=== PATIENT | male | born 1970 | race Caucasian/White ===

== ENCOUNTER 2017-08-07 18:59 | Emergency (ER) | payer BC, SELFPAY ==
[2017-08-07 19:00] VITALS: BP 156/101; PULSE 102; RESP 18; TEMP 36.3; O2SAT 97; BMI 35.3
--- NOTE | 2017-08-07 19:20 | RAD_ITS ---
STUDY: X-RAY - LEFT SHOULDER REASON FOR EXAM: Male, 46 years old. Left shoulder pain. TECHNIQUE: 4 view(s) of the shoulder. COMPARISON: None. FINDINGS: Normal glenohumeral articulation. Normal acromioclavicular joint. Normal acromion. Normal humeral head and visualized proximal humerus. The soft tissue structures are unremarkable. There is no demonstrated fracture. Normal visualized pulmonary apex. RAD/Shoulder min 2 Views IMPRESSION: Normal x-ray examination of the shoulder. Electronically Signed: Master Nieves MD at 19:39 EDT , Service support ,
[2017-08-07] MEDS: Naproxen 500 MG Tablet PO (19:33)
--- NOTE | 2017-08-07 19:56 | ED.VISSUMM ---
- ER Visit Summary Date of Service: 08/07/17 Chief Complaint: Left shoulder pain History of Present Illness: The patient is a 46 M with a three-week history of left posterior shoulder pain. Pain is been worsened with movement or palpation. He denies any known injury. He did fall from a chair yesterday that seems to have worsened the pain. He is left-hand dominant. Pain does not radiate down his arm. He has no paresthesias or weakness. Physical Examination: Vital signs are significant for blood pressure 156/101, otherwise unremarkable. Head neck examination is unremarkable. No C-spine tenderness on exam. Heart is regular rate and rhythm. Lung sounds are clear. Abdomen is soft nontender. Left upper extremity examination reveals tenderness over the left scapula musculature. He has full range of motion at the shoulder. He has strong distal pulses and normal sensation. Test Results: Left shoulder x-rays are unremarkable. Emergency Department Course and Treatment: Patient is given Naprosyn and Flexeril here. He will be given a sling. He is referred to orthopedics for follow-up. Treatment Plan: [] Disposition: Discharge Impression: Left shoulder sprain This note was generated with [employer] dictation software. It may contain incorrect words, spelling, and punctuation that were not noted in review of the chart prior to signing ED Disposition - Plan for ED Patient: Chief Complaint: Upper Extremity Injury Referrals: Care Physician,No Primary [Primary Care Provider] -
--- NOTE | 2017-08-07 19:57 | ED.DEP ---
ED Disposition - Plan for ED Patient: Disposition: Home or Assisted Living Chief Complaint: Upper Extremity Injury Instructions: ED Shoulder Pain [facility] Prescriptions: Naproxen [Naprosyn] 500 mg PO BID PRN #20 tablet Cyclobenzaprine [Flexeril] 10 mg PO TID PRN #20 tablet PRN Reason: Muscle Spasm Referrals: Rosemary Miller DO [STAFF PHYSICIAN] - 1 Week
[2017-08-07 20:06] VITALS: BP 156/101; PULSE 102; RESP 18; O2SAT 97
== END 2017-08-07 20:06 | disposition home or self-care (01) ==
PROVIDERS: Emergency Provider Emergency Medicine
DX: S43.402A Unspecified sprain of left shoulder joint, initial encounter (principal); W07.XXXA Fall from chair, initial encounter; Y93.9 Activity, unspecified; Y92.9 Unspecified place or not applicable; Z72.0 Tobacco use
CPT/HCPCS: 73030; 99284

== ENCOUNTER 2017-10-02 16:40 | Emergency (ER) | payer SELFPAY ==
[2017-10-02 16:41] VITALS: BP 158/106; PULSE 85; RESP 18; TEMP 36.5; O2SAT 100; BMI 36.1
--- NOTE | 2017-10-02 16:55 | ED.VISSUMM ---
- ER Visit Summary Date of Service: 10/02/17 Chief Complaint: [] Left shoulder/trapezius pain History of Present Illness: The patient is a 47 M [] complaining of left shoulder/trapezius pain after several hours of pulling weeds and mowing the lawn. Patient denies direct injury. Denies lifting heavy weights. Reports not taking any [id number] NSAIDs prior to arrival. No other complaints. Physical Examination: [] Afebrile, vital signs stable. There is good range of motion of the left shoulder. There is mild discomfort with range of motion testing. There is tenderness palpation over the musculature of the trapezius on the deltoid. No significant swelling or warmth. Remainder of exam is unremarkable. Patient is neurovascularly intact distally to the left upper extremity. Test Results: [] None Emergency Department Course and Treatment: [] Patient given IM Toradol and IM Norflex for symptom relief. His adult fianc? is at the bedside will drive him home. Patient given short-term solution for Flexeril. He is instructed to apply moist heat to the affected area. Treatment Plan: [] Follow-up with PCP, outpatient prescription for Flexeril. Disposition: [] Discharge, stable. Impression: [] Left shoulder strain This note was generated with [employer] dictation software. It may contain incorrect words, spelling, and punctuation that were not noted in review of the chart prior to signing ED Disposition - Plan for ED Patient: Chief Complaint: Upper Extremity Injury Referrals: Care Physician,No Primary [Primary Care Provider] -
--- NOTE | 2017-10-02 16:57 | ED.DEP ---
ED Disposition - Plan for ED Patient: Disposition: Home or Assisted Living Chief Complaint: Upper Extremity Injury Instructions: ED Sprain Shoulder Prescriptions: Cyclobenzaprine [Flexeril] 10 mg PO TID #15 tab Referrals: Care Physician,No Primary [Primary Care Provider] -
[2017-10-02] MEDS: Ketorolac 30 MG/ML Syringe IM (16:59)
[2017-10-02] MEDS: Orphenadrine 60 MG/2 ML Ampul IM (16:59)
[2017-10-02 17:28] VITALS: RESP 18
== END 2017-10-02 17:28 | disposition home or self-care (01) ==
PROVIDERS: Emergency Provider Emergency Medicine
DX: S46.812A Strain of other muscles, fascia and tendons at shoulder and upper arm level, left arm, initial encounter (principal); X50.3XXA Overexertion from repetitive movements, initial encounter; Y93.H2 Activity, gardening and landscaping; Y92.007 Garden or yard of unspecified non-institutional (private) residence as the place of occurrence of the external cause; Y99.8 Other external cause status; I10 Essential (primary) hypertension; Z72.0 Tobacco use
CPT/HCPCS: 96372; 99282

== ENCOUNTER 2017-11-09 11:02 | Emergency (ER) | payer SELFPAY ==
[2017-11-09 11:04] VITALS: BP 157/98; PULSE 97; RESP 16; TEMP 36.6; O2SAT 96; BMI 34.8
--- NOTE | 2017-11-09 11:24 | ED.DCSUM_ITS ---
- ER Visit Summary Date of Service: 11/09/17 Chief Complaint: Left shoulder pain History of Present Illness: The patient is a 47 M with left shoulder pain. This has been ongoing issue for weeks. Worse of the last few days. No injury. Worse with movement and use. It does not radiate. No chest pain or back pain. No respiratory symptoms. No fevers or rashes. Patient has been seen multiple times. He has tried steroids, anti-inflammatories, narcotics, and muscle relaxers. Nothing seems to make his symptoms better. Physical Examination: Vital signs unremarkable. Patient appears uncomfortable but not toxic or in distress. Inspection is normal. He does have some tenderness over the left trapezius muscle. Neck is nontender. Shoulder shows good range of motion. He is neurovascular intact distally. Heart regular without murmurs. Lungs clear. Skin normal without rash. Test Results: None indicated, he had x-rays previously Emergency Department Course and Treatment: Patient treated with Toradol, Kenalog , and Norflex for myofascial pain. Nothing to suggest cardiac, respiratory, or vascular pathology. Nothing to suggest spinal or neurologic pathology. Patient was advised to continue anti-inflammatories and muscle relaxers at home. Follow-up with primary care. Treatment Plan: As above Disposition: Discharged Impression: 1. Left shoulder pain This note was generated with [employer] dictation software. It may contain incorrect words, spelling, and punctuation that were not noted in review of the chart prior to signing ED Disposition - Plan for ED Patient: Chief Complaint: Upper Extremity Injury Referrals: Care Physician,No Primary [Primary Care Provider] -
--- NOTE | 2017-11-09 11:24 | ED.DEP ---
ED Disposition - Plan for ED Patient: Chief Complaint: Upper Extremity Injury Instructions: Shoulder Problems Prescriptions: Cyclobenzaprine [Flexeril] 10 mg PO TID #10 tab Referrals: Elmer Kirk MD [STAFF PHYSICIAN] -
[2017-11-09] MEDS: Ketorolac 60 MG/2 ML Vial IM (11:27)
[2017-11-09] MEDS: Orphenadrine 60 MG/2 ML Ampul IM (11:28)
[2017-11-09] MEDS: Triamcinolone Acetonide 40 MG/ML Vial IM (11:28)
== END 2017-11-09 11:43 | disposition home or self-care (01) ==
LOC: ED 11:23
PROVIDERS: Emergency Provider Emergency Medicine
DX: M25.512 Pain in left shoulder (principal); Z72.0 Tobacco use
CPT/HCPCS: 96372; 99282

== ENCOUNTER 2018-05-05 18:37 | Emergency (ER) | payer MEDICAID, SELFPAY ==
[2018-05-05 18:38] VITALS: PULSE 100; RESP 18; TEMP 36.1; O2SAT 98; BMI 33.4
--- NOTE | 2018-05-05 18:53 | RAD_ITS ---
STUDY: X-RAY - LEFT HAND REASON FOR EXAM: Male, 47 years old. And laceration TECHNIQUE: 3 view(s) of the hand. COMPARISON: None. FINDINGS: Normal radiocarpal articulation. Normal distal radioulnar joint. Normal visualized carpal bones. Normal carpal articulations Normal carpometacarpal articulation of the thumb. Normal second through fifth carpometacarpal joints. There is an old healed boxer's fracture of the fifth metacarpal. Normal metacarpophalangeal joint of the thumb. Normal interphalangeal joint of the thumb. Normal proximal and distal phalanges of the thumb. Normal metacarpophalangeal joints of the second through fifth fingers. Normal proximal and distal interphalangeal joints of the second through fifth fingers. Normal phalanges of the second through fifth fingers. The soft tissue structures are unremarkable. RAD/Hand Min 3 Views IMPRESSION: Old healed boxer's fracture of the fifth metacarpal. There is no evidence of acute fracture or dislocation. Soft tissues are unremarkable. Electronically Signed: Rodrigo Bonilla MD at 19:13 EST , Service support ,
[2018-05-05] MEDS: Diphth,Pertuss(Acell),Tet Vac 0.5 ML Vial IM (19:06)
--- NOTE | 2018-05-05 19:23 | ED.VISSUMM ---
- ER Visit Summary Date of Service: 05/05/18 Chief Complaint: Left hand laceration History of Present Illness: The patient is a 47 M with a laceration on the left hand. A car door slammed on his left hand. This occurred 1/2-hour ago. His tetanus is unknown. Pain is worse with movement of the left hand. Physical Examination: Vital signs reviewed. Left hand exam reveals tenderness over the second MCP joint. He has a 2 cm laceration in this area. No bleeding at this time. Test Results: Left hand x-ray reveals no fractures Emergency Department Course and Treatment: Patients tetanus was updated. Laceration was repaired with 5, 4?0 simple interrupted sutures. He will have these out in 7-10 days. Treatment Plan: [] Disposition: Discharge Impression: Left hand laceration, left hand contusion Laceration repair by ED physician This note was generated with [employer] dictation software. It may contain incorrect words, spelling, and punctuation that were not noted in review of the chart prior to signing ED Disposition - Plan for ED Patient: Chief Complaint: Laceration Referrals: Care Physician,No Primary [Primary Care Provider] -
--- NOTE | 2018-05-05 19:24 | ED.DEP ---
ED Disposition - Plan for ED Patient: Disposition: Home or Assisted Living Chief Complaint: Laceration Instructions: ED Laceration All Referrals: Care Physician,No Primary [Primary Care Provider] -
== END 2018-05-05 19:44 | disposition home or self-care (01) ==
LOC: ED 19:44
PROVIDERS: Emergency Provider Emergency Medicine
DX: S61.412A Laceration without foreign body of left hand, initial encounter (principal); S60.222A Contusion of left hand, initial encounter; W23.0XXA Caught, crushed, jammed, or pinched between moving objects, initial encounter; Z72.0 Tobacco use
CPT/HCPCS: 12001; 73130; 90471; 90715; 99283

== ENCOUNTER → 2018-09-15 09:26 | Outpatient (CLI) | payer MEDICAID, SELFPAY ==
[2018-09-15 09:12] VITALS: BMI 33.4
--- NOTE | 2018-09-15 09:30 | RAD_ITS ---
STUDY: X-RAY - RIGHT WRIST REASON FOR EXAM: Male, 47 years old. Wrist pain and swelling status post hyperextension injury yesterday. TECHNIQUE: 3 view(s) of the wrist were obtained. COMPARISON: None. FINDINGS: Normal visualized distal radius and ulna. Normal radiocarpal articulation. Normal distal radioulnar articulation. Normal carpal bones. Normal carpal articulations. Normal carpometacarpal articulation of the thumb. Normal second through fifth carpometacarpal articulations. Normal visualized metacarpal bones. The soft tissue structures are unremarkable. RAD/Wrist min 3 Views IMPRESSION: Normal x-ray examination of the wrist. Electronically Signed: Ancelmo Light MD at 10:08 EDT , Service support ,
== END ==
PROVIDERS: Referring Provider Physician Assistant Surgical; Visit Provider Physician Assistant Surgical
DX: S60.211A Contusion of right wrist, initial encounter (principal)
CPT/HCPCS: 73110

== ENCOUNTER → 2019-04-17 15:40 | Outpatient (CLI) | payer MEDICAID, SELFPAY ==
[2019-04-17 15:32] VITALS: BMI 34.0
--- NOTE | 2019-04-17 15:44 | RAD_ITS ---
STUDY: X-RAY - PELVIS AND RIGHT HIP REASON FOR EXAM: Male, 48 years old. Right hip pain no trauma TECHNIQUE: 3 views of the pelvis and hip. COMPARISON: None. FINDINGS: There is a non-specific bowel gas pattern. Normal visualized soft tissue structures. Normal bilateral iliac wings, sacroiliac joints and visualized sacrum. Normal bilateral superior and inferior pubic rami. Normal pubic symphysis. Normal bilateral ischial tuberosities. Normal visualized femoral head. Normal acetabulum. Normal hip joint. RAD/HIP, UNI W/ Pelvis 2-3 Views IMPRESSION: Normal x-ray examination of the pelvis and hip. Electronically Signed: Rodrigo Bonilla MD at 16:13 EST , Service support ,
--- NOTE | 2019-04-17 15:44 | RAD_ITS ---
STUDY: X-RAY - LUMBAR SPINE REASON FOR EXAM: Male, 48 years old. Low back pain no trauma TECHNIQUE: 3 view(s) of the lumbar spine were obtained. COMPARISON: None FINDINGS: Normal lumbar lordosis. There is no substantial scoliosis. There is a grade 1 anterolisthesis of L5 relative to S1. There is multilevel endplate spondylosis of the lumbar vertebrae. There is multi-level degenerative disc disease with multi-level disc space narrowing. The soft tissue structures are unremarkable. RAD/Lumbar Spine 2 or 3 Views IMPRESSION: Degenerative changes of the spine, as detailed above. Grade 1 anterolisthesis of L5 relative to S1. Electronically Signed: Rodrigo Bonilla MD at 16:15 EST , Service support ,
== END ==
PROVIDERS: Referring Provider Physician Assistant; Visit Provider Physician Assistant
DX: M47.896 Other spondylosis, lumbar region (principal); M51.36 Other intervertebral disc degeneration, lumbar region; M48.061 Spinal stenosis, lumbar region without neurogenic claudication; M25.551 Pain in right hip
CPT/HCPCS: 72100; 73502

== ENCOUNTER 2019-11-05 16:38 | Emergency (ER) | payer SELFPAY ==
[2019-11-05 16:38] VITALS: BMI 34.0
[2019-11-05 16:39] VITALS: BP 164/91; PULSE 99; RESP 18; TEMP 36.6; O2SAT 99; BMI 34.2
--- NOTE | 2019-11-05 16:54 | ED.VIS.GEN ---
History of Present Illness Chief Complaint: Lower Extremity Injury Informant: Patient Onset: Today Current Severity: Mild Maximum Severity: Moderate Narrative: She presents with right ankle pain after rolling his ankle this morning. He states he was walking in flip-flops and stepped in a hole. He has been able to ambulate but has antalgic gait. He denies paresthesias. He denies pain at the knee or hip. - Past Medical History (1) Hypertension Status: Chronic Past Medical History - Allergies and Home Meds Allergies/Adverse Reactions: Allergies No Known Allergies Allergy (Verified 11/05/19 16:41) Primary Care Physician: Care Physician,No Primary [Primary Care Provider] - Prior records reviewed: Yes Lives: Spouse/ Significant Other Smoking Status: Current every day smoker Review of Systems General: Denies: Chills, Fever Eyes: Denies: Visual changes - bilaterally ENT: Denies: Bilateral ear pain Cardiovascular: Denies: Chest pain Respiratory: Denies: Dyspnea, Cough Gastrointestinal: Denies: Abdominal pain Genitourinary: Denies: Dysuria Musculoskeletal: Reports: Swelling, Extremity Pain Skin: Denies: Rash Neurological: Denies: Headache Hematologic: Denies: Easy bruising, Easy bleeding Allergy: Denies: Uticaria Physical Exam Vital Signs/Narrative: Vital Signs Temp Pulse Resp BP Pulse Ox 11/05/19 16:39 97.9 F 99 18 164/91 H 99 Inital Vital Signs reviewed: Yes General: Well nourished, Well developed Head: Normocephalic ENT: Moist mucous membranes Cardiovascular: Regular rate, Regular rhythm Respiratory: No distress, CTA bilaterally Abdomen: Soft, Nontender Extremities: - - Mild tenderness location lateral malleolus of the right ankle. Mild edema. No tenderness of the proximal fibula. Neurological: Alert, Oriented x3 Psychological: Normal affect Diagnostic/Tx/Re-eval Right ankle x-ray per my review reveals no evidence of acute fracture. - Medical Decision Making Patient declined anything while here for pain. Ice pack was applied to the right ankle. Patient be treated with an air stirrup splint and crutches. He may weight-bear as tolerated. He is referred to Dr. Brewer, on-call for orthopedics if not improving. ED Disposition - Plan for ED Patient: Disposition: Home or Assisted Living Diagnosis: Right ankle sprain Instructions: ED Sprain Ankle W X Ray Referrals: Leno Brewer MD [STAFF PHYSICIAN] - As Needed
--- NOTE | 2019-11-05 17:10 | RAD_ITS ---
STUDY: X-RAY - RIGHT ANKLE REASON FOR EXAM: Male, 49 years old. patient stepped in a hole, right ankle pain TECHNIQUE: 3 view(s) of the ankle. COMPARISON: None. FINDINGS: Normal visualized distal tibia and fibula. Normal medial and lateral malleoli. Normal tibiotalar articulation and ankle mortise. Normal visualized talus and calcaneus. The visualized subtalar, talonavicular, calcaneocuboid and tarsal articulations are normal. There is no demonstrated fracture. The soft tissue structures are unremarkable. RAD/Ankle min 3 Views IMPRESSION: No demonstrated acute process of the ankle. Electronically Signed: Felix Starr MD at 18:27 EDT , Service support ,
[2019-11-05 18:58] VITALS: RESP 18
== END 2019-11-05 18:58 | disposition home or self-care (01) ==
PROVIDERS: Emergency Provider Emergency Medicine
DX: S93.401A Sprain of unspecified ligament of right ankle, initial encounter (principal); W01.0XXA Fall on same level from slipping, tripping and stumbling without subsequent striking against object, initial encounter; Z91.81 History of falling; F17.210 Nicotine dependence, cigarettes, uncomplicated
CPT/HCPCS: 73610; 99284

== ENCOUNTER 2020-06-23 08:25 | Emergency (ER) | payer SELFPAY ==
[2020-06-23 08:26] VITALS: BP 161/110; PULSE 90; RESP 18; TEMP 36.4; O2SAT 98; BMI 37.2
--- NOTE | 2020-06-23 09:15 | RAD_ITS ---
STUDY: X-RAY - LEFT SHOULDER REASON FOR EXAM: Male, 49 years old. Left shoulder pain x 8 days. NKI. TECHNIQUE: 4 view(s) of the shoulder. COMPARISON: Comparison is made with prior study dated 08/07/2017. FINDINGS: Normal glenohumeral articulation. Normal acromioclavicular joint. Normal acromion. Normal humeral head and visualized proximal humerus. The soft tissue structures are unremarkable. Normal visualized pulmonary apex. RAD/Shoulder min 2 Views IMPRESSION: Normal x-ray examination of the shoulder. Electronically Signed: Eusebio Chapa MD at 9:29 EST , Service support ,
--- NOTE | 2020-06-23 09:52 | ED.DCSUM_ITS ---
History of Present Illness Chief Complaint: Upper Extremity Injury Narrative: Patient presenting for evaluation secondary to left shoulder pain. Patient reports that he has had around 1 to 2 weeks of left-sided shoulder pain. Is continuous type pain, was not provoked by any sort of specific injury. Patient locates it near his left trapezius. There is no limitation in his range of motion of the shoulder. No constitutional symptoms such as fever. He is never really had any prior similar episodes in the past. No numbness or weakness or radiation down the arm. Patient denies any increased activity such as lifting twisting pushing or pulling. Patient has tried [id number] remedies such as Tylenol ibuprofen and topical medications. He also has tried muscle relaxants that he has had left over from previous injuries without any sort of relief. Review of systems otherwise negative. Past Medical History - Allergies and Home Meds Allergies/Adverse Reactions: Allergies No Known Allergies Allergy (Verified 06/23/20 08:28) Primary Care Physician: Magdalena Bueno MD [Primary Care Provider] - Prior records reviewed: Yes Past Medical History: - - Hypertension Lives: With Family Smoking Status: Current every day smoker Drugs: None Review of Systems All systems negative except as indicated General: Denies: Chills, Fever, Sweats Eyes: Denies: Visual changes - bilaterally, Diplopia ENT: Denies: Rhinorrhea, Sore throat Cardiovascular: Denies: Chest pain, Palpitations Respiratory: Denies: Dyspnea, Cough, Dyspnea on exertion Gastrointestinal: Denies: Abdominal pain, Nausea, Vomiting, Diarrhea, Melena, Hematochezia Genitourinary: Denies: Dysuria, Hematuria, Frequency Musculoskeletal: Reports: Extremity Pain Skin: Denies: Rash, Wounds Neurological: Denies: Headache, Weakness, Numbness Physical Exam Vital Signs/Narrative: Vital Signs Temp Pulse Resp BP Pulse Ox 06/23/20 08:26 97.6 F L 90 18 161/110 H 98 Left Shoulder: - - Examination of the left shoulder shows some focal tenderness to palpation over the trapezius. Normal range of motion of the shoulder without crepitus. No signs of warmth erythema or joint effusion. Normal stressing of the rotator cuff. Normal reflexes and distal pulses and sensation. General: Well nourished, Well developed Head: Normocephalic, Atraumatic Eyes: Perrl, EOMI ENT: No Trauma, Moist Mucous Membranes Neck: Nontender, Full ROM Cardiovascular: Regular rate, Regular rhythm, No murmurs Respiratory: No distress, CTA bilaterally, Chest nontender Back: Nontender Skin: Normal color, No rash Neurological: Alert, Oriented x3, Cranial nerves II-XII grossly intact, Normal Strength, Normal Sensation Psychological: Normal affect Diagnostic/Tx/Re-eval Clinical Impression(s) from Imaging Studies Shoulder X-Ray 06/23/20 09:15 IMPRESSION: Normal x-ray examination of the shoulder. Electronically Signed: Eusebio Chapa MD at 9:29 EST , Service support , - Medical Decision Making Patient presented secondary to shoulder pain. This is more of trapezius type pain. A shoulder x-ray was obtained by my personal review as well as radiology shows no evidence of bony pathology. Patient is already tried some outpatient management for this, I will place the patient on a Medrol pack and give him a short course of [place] for treatment of pain. Should he have continued pain he will be given a referral to orthopedics. Patient was comfortable with this disposition and he was discharged. ED Disposition - Plan for ED Patient: Disposition: Home or Assisted Living Diagnosis: Strain of left trapezius muscle Instructions: ED Shoulder Pain, Uncertain Cause Prescriptions: MethylPREDNISolone DosePak [Medrol DosePak] 4 mg PO UD #1 box Prescription Printed Hydrocodone Bitart/Apap 5-325 [[place] 5MG-325MG] 1 tab PO Q6H PRN PRN 3 Days #12 tab PRN Reason: Pain Prescription Printed Referrals: Leno Brewer MD [STAFF PHYSICIAN] - As Needed
[2020-06-23 10:12] VITALS: PULSE 88; RESP 17; O2SAT 98
== END 2020-06-23 10:13 | disposition home or self-care (01) ==
PROVIDERS: Emergency Provider Emergency Medicine; PCP Internal Medicine
DX: S46.812A Strain of other muscles, fascia and tendons at shoulder and upper arm level, left arm, initial encounter (principal); X58.XXXA Exposure to other specified factors, initial encounter; Y93.9 Activity, unspecified; Y92.9 Unspecified place or not applicable; Y99.9 Unspecified external cause status; I10 Essential (primary) hypertension; F17.200 Nicotine dependence, unspecified, uncomplicated
CPT/HCPCS: 73030; 99282

== ENCOUNTER 2021-09-20 18:10 | Emergency (ER) | payer SELFPAY ==
[2021-09-20 18:11] VITALS: BP 180/102; PULSE 95; RESP 18; TEMP 36.6; O2SAT 97; BMI 34.8
--- NOTE | 2021-09-20 18:16 | EKG12_ITS ---
Test Reason : CP Blood Pressure : / mmHG Vent. Rate : 089 BPM Atrial Rate : 089 BPM P-R Int : 158 ms QRS Dur : 094 ms QT Int : 362 ms P-R-T Axes : 057 006 035 degrees QTc Int : 440 ms Normal sinus rhythm Normal ECG Confirmed by AGATHA AMADOR, SUBHASH ([id number]), editor dictionary RICK PATEL ([id number]) on 09/21/2021 1:17:30 PM Referred By: ANALIA Confirmed By:SUBHASH SNIDER MD
--- NOTE | 2021-09-20 18:18 | NURSING ---
NO OLD EKGS
--- NOTE | 2021-09-20 18:20 | RAD_ITS ---
STUDY: X-RAY CHEST REASON FOR EXAM: Male, 50 years old. 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 denies pain now. TECHNIQUE: AP COMPARISON: 10/07/2012 FINDINGS: EKG leads project over the chest. The lungs are clear and expanded. There is no demonstrated pleural abnormality. Normal size heart. Normal mediastinum and tory. Normal visualized pulmonary arteries. Normal visualized aortic arch and descending thoracic aorta. No acute bony process. There is no demonstrated abnormality of the visualized soft tissue structures of the upper abdomen. RAD/Chest 1 View (Portable) IMPRESSION: Nonacute portable x-ray examination of the chest. Electronically Signed: Leobardo Galdamez MD ([place]) at 18:37 EDT ,
[2021-09-20 18:39] VITALS: BP 124/74; PULSE 89; RESP 18; O2SAT 97
[2021-09-20 18:39] LABS: Absolute Lymphocyte Count 3.89 X10^3/uL (0.83-4.51); Absolute Neutrophil Count 5.2 X10^3/uL (2.0-7.7); Basophil# 0.08 X10^3/uL; Basophil% 0.8 % (0-1); Eosinophil# 0.53 X10^3/uL; Eosinophils% 5.1 % (0-5); Hemoglobin 15.5 g/dL (13.0-16.5); Lymphocyte # 3.89 X10^3/ul (0.83-4.51); Lymphocyte % 37.4 % (19-41); Mean Corp Hgb Conc 34.4 g/dL (32-36); Mean Corpuscular Volume 95.9 fL (80-94); Mean Platelet Vol. 11.1 fl (6.2-12.0); Monocyte# 0.63 X10^3/uL; Monocyte% 6.1 % (0-10); NRBC Flagged by Analyzer 0 % (0-5); Neutrophil # 5.22 X10^3/uL (2.7-7.7); Neutrophil % 50.2 % (47-70); Platelet Count 168 K/mm3 (150-450); RBC Distribution Width CV 12.1 % (11.6-14.6); RBC Distribution Width SD 42.5 fl (35.1-43.9); Red Blood Count 4.69 M/mm3 (4.6-6.2); White Blood Count 10.4 K/mm3 (4.4-11.0)
--- NOTE | 2021-09-20 18:45 | EDS_ITS ---
HPI History of Present Illness Chief Complaint: Chest Pain Narrative Narrative: 50-year-old male presenting with chest pain. He describes it as left-sided. This started about 6 PM this evening. Patient states he became sweaty and his pain radiated to the left side of his jaw and his left arm. He denies lightheadedness. He states this started after eating pork chops for dinner. He has not had fever, chills, cough. He states he is felt otherwise well. He does admit that he stopped taking his lisinopril because he lost his insurance and does not have a primary care doctor. He states he has no other medical problems. No cardiac history. No pulmonary history. No history of DVT/PE and no risk factors. PFSH PFSH Medical History Hypertension Obesity Tobacco use Allergy/AdvReac Type Severity Reaction Status Date / Time No Known Allergies Allergy Verified 09/20/21 18:11 Family History Other Diabetes Epilepsy Hypertension Surgical History H/O right wrist surgery History of lateral meniscus repair of left knee Social History (Updated 09/20/21 @ 19:[address] Masha Espino MD) household members: spouse Smoking Status: Current every day smoker tobacco type: cigarettes Smoking packs per day: 1 Smoking cigarettes per day: 20.0 Years smoked: 23 Smoking pack-years: 23.00 alcohol intake: current substance use type: does not use ROS ROS ED Constitutional Constitutional ED: Reports sweats; Denies chills or fever(s) Eyes Eyes: Denies blurry vision or change in vision ENT ENT ED: Denies rhinorrhea or sore throat Cardiovascular Cardiovascular: Reports as per HPI Respiratory/Chest Respiratory/Chest: Denies cough or dyspnea Gastrointestinal Gastrointestinal: Denies abdominal pain, nausea or vomiting Genitourinary Genitourinary ED: Denies dysuria or hematuria Musculoskeletal Musculoskeletal: Denies arthralgias or myalgias Integumentary Denies abscess or rash Neurologic Neurologic: Denies headache(s) or weakness Psychiatric Psychiatric: Denies anxiety or depression EXAM Physical Exam Const Vital Signs: 09/20/21 18:11 09/20/21 18:39 09/20/21 20:10 Temperature 98 F Temperature Source Temporal Pulse Rate 95 89 84 Respiratory Rate 18 18 18 Respiratory Effort Normal Non-Labored Blood Pressure 180/102 H 124/74 H 115/74 Blood Pressure Mean 128 90 87 Pulse Ox 97 97 95 Oxygen Delivery Method Room Air Room Air Room Air Positive well nourished General Appearance ED: NAD; Negative for pallor HEENT Reports moist mucous membranes normocephalic and atraumatic Eyes PERRL and EOMs intact bilaterally Chest Wall inspection of chest normal Resp normal respiratory effort and clear to auscultation bilaterally Auscultation: Negative for rales, rhonchi or wheezes Cardio regular rate and regular rhythm GI normal to inspection, nondistended, normoactive bowel sounds Neuro oriented x3 and CN's II-XII intact bilaterally Sensorium / Orientation: awake and alert Psych mental status grossly normal Skin no rashes or lesions noted General Skin Exam: Negative for jaundice or pallor Heart Score History: Slightly/Non-Suspicious ECG: Normal Age: >45 - <65 years Risk Factors: 1 or 2 Risk Factors Score: 2 MDM MDM MDM Narrative Medical decision making narrative: 50-year-old male history of uncontrolled hypertension presenting with chest pain which lasted about 2 minutes. He states the pain radiated to the left jaw and left arm. Symptoms have completely resolved. Denies cardiac history. EKG obtained on arrival shows a sinus rhythm with ventricular rate of 89 bpm without sign of ischemic change or dysrhythmia. Chest x-ray on my interpretation shows no acute cardiopulmonary process and the radiologist does agree. CBC shows no leukocytosis. Hemoglobin and hematocrit are stable. Platelets normal. High-sensitivity troponin is 4 and a delta troponin is 4. No significant interval change. Patient has not had a return of his symptoms. His blood pressure is now normal 115/74. I believe he safe for outpatient follow-up. Discussed all results with patient. He is amenable to this plan. He will follow-up outpatient and return for new or worsening symptoms. Impression: 1. Chest pain noncardiac Lab Data Attestation: I reviewed the patient's lab results. Labs: Laboratory Results - last 24 hr 09/20/21 09/20/21 09/20/21 18:32 18:32 20:43 WBC 10.4 RBC 4.69 Hgb 15.5 Hct 45.0 MCV 95.9 H MCH 33.0 H MCHC 34.4 RDW Std Deviation 42.5 RDW Coeff of Michelle 12.1 Plt Count 168 MPV 11.1 Immature Gran % (Auto) 0.400 Neut % (Auto) 50.2 Lymph % (Auto) 37.4 [place] % (Auto) 6.1 Eos % (Auto) 5.1 H Baso % (Auto) 0.8 Absolute Neuts (auto) 5.2 Absolute Lymphs (auto) 3.89 Nucleated RBC % 0 Sodium 137 Potassium 4.0 Chloride 105 Carbon Dioxide 24.0 Anion Gap 8 BUN 9 Creatinine 0.80 Estim Creat Clear Calc 104.50 Est GFR (MDRD) Af Amer 131 Est GFR (MDRD) Non-Af 108 BUN/Creatinine Ratio 11.3 Glucose 91 Calcium 9.0 Troponin I High Sens 4 4 Radiography Diagnostic Testing: Clinical Impression(s) from Imaging Studies Chest X-Ray 09/20/21 18:20 IMPRESSION: Nonacute portable x-ray examination of the chest. Electronically Signed: Leobardo Galdamez MD ([place]) at 18:37 EDT Reading Location ID and State: [facility] / [place] , Service support , Discharge Plan Triage Chief Complaint: Chest Pain ED Provider: Gregg Lim Dx/Rx/DC Orders Instructions: ED Chest Pain, Noncardiac Primary Care Provider: Care Physician,No Primary Referrals: Louise Dunham MD [STAFF PHYSICIAN] - 3-5 Days Care Physician,No Primary [Primary Care Provider] - Disposition Disposition: Home, Self Care
[2021-09-20 18:57] LABS: Anion Gap 8 (5-15); BUN 9 mg/dL (7-18); BUN/Creat Ratio 11.3 RATIO (10-20); Chloride 105 mmol/L (98-107); EST Glomerular Filtration Rate 108 mL/min (>60); Est Glom Filt Rate - Afr Amer 131 mL/min (>60); Glucose 91 mg/dL (74-106); Sodium Level 137 mmol/L (136-145); Troponin-I HS (w/2H Reflex) 4 pg/mL (3.0-78.0)
[2021-09-20 20:10] VITALS: BP 115/74; PULSE 84; RESP 18; O2SAT 95
[2021-09-20 20:36] LABS: Reflex Troponin-HS? (from REC) Y
[2021-09-20 21:12] LABS: Troponin-I HS 4 pg/mL (3.0-78.0)
[2021-09-20 22:10] VITALS: BP 125/70; PULSE 75; RESP 17; O2SAT 96
== END 2021-09-20 22:11 | disposition home or self-care (01) ==
PROVIDERS: Emergency Provider Student in an Organized Health Care Education/Training Program; Visit Provider Student in an Organized Health Care Education/Training Program
DX: R07.89 Other chest pain (principal); I10 Essential (primary) hypertension; E66.9 Obesity, unspecified; F17.210 Nicotine dependence, cigarettes, uncomplicated; Z68.34 Body mass index [BMI] 34.0-34.9, adult
CPT/HCPCS: 71045; 80048; 84484; 85025; 93005; 99284; A4216

== ENCOUNTER 2022-12-21 11:49 | Emergency (ER) | payer SELFPAY ==
[2022-12-21 11:50] VITALS: BP 189/129; PULSE 81; RESP 18; TEMP 36.2; O2SAT 98; BMI 34.5
--- NOTE | 2022-12-21 12:30 | EX.ED.DYSGE1 ---
HPI History of Present Illness Chief Complaint: Hypertension Informant: patient Narrative Narrative: Presents to the ED after health check through a new job well check. Blood pressure is elevated unclear what number it was. He has history of hypertension and is previous on lisinopril he does not know what dose or any other medications involved. Is been off it for a while. He lost his insurance therefore did not see his doctor. Was previously seeing Dr. Pierce. Denies headache chest pains nausea vomiting. Denies any change difficulty urinating. Denies leg swelling. States needs to be back on medications for his job. Reports does have a blood pressure cuff at home. Prior similar symptoms: Yes PFSH PFSH Medical History Hypertension Obesity Tobacco use Home Medications valsartan 80 mg-hydrochlorothiazide 12.5 mg tablet 1 tab PO DAILY #30 tabs 12/21/22 [Rx Last Taken Unknown] Allergy/AdvReac Type Severity Reaction Status Date / Time No Known Allergies Allergy Verified 12/21/22 11:50 Family History Other Diabetes Epilepsy Hypertension Surgical History H/O right wrist surgery History of lateral meniscus repair of left knee Social History household members: spouse Smoking Status: Current every day smoker tobacco type: cigarettes alcohol intake: current substance use type: does not use ROS ROS ED Constitutional Constitutional ED: Denies chills, fever(s) or sweats Eyes Eyes: Denies change in vision ENT ENT ED: Denies dysphagia or sore throat Cardiovascular Cardiovascular: Denies chest pain, leg edema, palpitations or racing heartbeat Respiratory/Chest Respiratory/Chest: Denies cough, dyspnea or dyspnea on exertion Gastrointestinal Gastrointestinal: Denies abdominal pain, diarrhea, nausea or vomiting Genitourinary Genitourinary ED: Denies dysuria, hematuria or urinary frequency Musculoskeletal Musculoskeletal: Denies back pain, extremity pain or neck pain Integumentary Denies rash or wounds Neurologic Neurologic: Denies headache(s), paresthesias or weakness EXAM Physical Exam Const Vital Signs: 12/21/22 11:50 12/21/22 11:49 Temperature 97.1 F L Temperature Source Temporal Pulse Rate 81 Respiratory Rate 18 Respiratory Pattern Normal Blood Pressure 189/129 H Blood Pressure Mean 149 Pulse Ox 98 Oxygen Delivery Method Room Air Positive well nourished and well developed General Appearance ED: well developed and NAD HEENT Reports moist mucous membranes normocephalic and atraumatic Eyes PERRL, EOMs intact bilaterally and conjunctivae normal General Eye ED: Yes normal appearance of both eyes Neck no lymphadenopathy and supple General: Negative for tenderness Chest Wall Chest: Negative for tenderness Resp normal respiratory effort and normal air movement Effort and Inspection: symmetric chest movement; Negative for respiratory distress Cardio regular rate, regular rhythm and no murmurs Peripheral Pulses: pulses 2+ throughout GI normal to inspection, nondistended, normoactive bowel sounds and non-tender Palpation: Negative for guarding or rebound tenderness present Back/Spine no CVA tenderness and no thoracic nor lumbar tenderness Extremity normal to inspection General Extremety ED: Negative for edema or tenderness General Extremity: Negative for edema Neuro oriented x3 and no sensory deficits noted Sensorium / Orientation: awake and alert Skin no rashes or lesions noted and no wounds MDM MDM MDM Narrative Medical decision making narrative: Interventions / MDM: Differential diagnosis: Asymptomatic hypertension Diagnosis considered but do not suspect: Accelerated hypertension, hypertensive emergency however no clinical symptoms My EKG interpretation: N/A Imaging independently reviewed and interpreted by myself: N/A External documents reviewed: N/A Test considered but not ordered:N/A ED course: Patient asymptomatic blood pressure 189/129 on arrival, rechecked in the room 175/115. Asymptomatic no urinary symptoms. Discussed with patient we will restart blood pressure medicines. We will do valsartan/hydrochlorothiazide 80 mg / 12.5 mg. He will take this daily. He will keep a blood pressure log. He will follow-up with his doctor. All questions were answered. Re-evaluation: stable Disposition discussed with patient/family/significant other: Patient Case discussed with consulting clinician: N/A This note was generated with [employer] dictation software. It may contain incorrect words, spelling, and punctuation that were not noted in checking the note before signing. Discharge Plan Triage Chief Complaint: Hypertension ED Provider: Santosh Duncan Dx/Rx/DC Orders Clinical Impression: Elevated blood pressure reading in office with diagnosis of hypertension Instructions: Blood Pressure Check Steps, ED Hypertension, Established Prescriptions: New valsartan-hydrochlorothiazide 80-12.5 mg tablet 1 tab PO DAILY Qty: 30 0RF Primary Care Provider: Care Physician,No Primary Referrals: Magdalena Bueno MD [Med Staff - [facility]] - 1-2 Weeks Care Physician,No Primary [Primary Care Provider] - Activity Restrictions/Additional Instructions: Take medication as prescribed keep a log of your blood pressure in the morning when you wake up and at night before bed. Follow-up as an outpatient for blood pressure recheck and adjustments of medications as needed. Disposition Disposition: Home, Self Care
[2022-12-21 12:35] VITALS: BP 189/105; PULSE 79; RESP 14; TEMP 36.6; O2SAT 100
== END 2022-12-21 12:47 | disposition home or self-care (01) ==
PROVIDERS: Emergency Provider Emergency Medicine; Visit Provider Emergency Medicine
DX: I10 Essential (primary) hypertension (principal); F17.210 Nicotine dependence, cigarettes, uncomplicated; E66.9 Obesity, unspecified; Z68.34 Body mass index [BMI] 34.0-34.9, adult
CPT/HCPCS: 99282

== ENCOUNTER 2024-01-21 14:35 | Emergency (ER) | payer OTHER, SELFPAY ==
[2024-01-21 14:36] VITALS: BP 142/91; PULSE 88; RESP 17; TEMP 36.2; O2SAT 96; BMI 33.2
--- NOTE | 2024-01-21 15:01 | ED.VIS.BACK ---
HPI History of Present Illness Chief Complaint: Back Informant: patient and spouse/S.O. Onset/Context/Timing Onset: Weeks Context: Gradual Onset Timing: Intermittent Quality: Sharp Location: Lumbar and Right Leg Current Severity: Moderate Maximum Severity: Moderate Worsened by: improves with Movement Relieved by: Nothing Associated Symptoms Associated Symptoms: Tingling and Radiation to Right Leg; Negative for Radiation to Left Leg, Fever, Abdominal Pain, Dysuria, Unable to Ambulate, Unable to Transfer, Urinary Retention, Urinary Incontinence, Constipation or Fecal Incontinence Narrative Narrative: 53-year-old male history of an L5 lumbar fracture. States he has chronic back pain for last 2 weeks it has been flared up. Today he was doing a lot of yard work and developed increased pain in his right lower back radiating to his right buttock and down his right hamstring. With some tingling. Denies any bowel or bladder incontinence. No fever. No fall or trauma. He is never had back surgery. Prior similar symptoms: Yes Recent Illness/Hospitalization: No PFSH PFSH Medical History Obesity Tobacco use Hypertension Home Medications ?Medication ?Instructions ?Recorded ?Last Taken ?Type valsartan 80 1 tab PO DAILY #30 tabs 12/21/22 Unknown Rx mg-hydrochlorothiazide 12.5 mg tablet prednisone 20 mg tablet 40 mg (2 x 20 mg) PO DAILY 9 days 01/21/24 Unknown Rx #18 tabs Allergy/AdvReac Type Severity Reaction Status Date / Time No Known Allergies Allergy Verified 01/21/24 14:35 Family History Other Diabetes Epilepsy Hypertension Surgical History H/O right wrist surgery History of lateral meniscus repair of left knee Social History household members: spouse Smoking Status: Current every day smoker tobacco type: cigarettes alcohol intake: current substance use type: does not use ROS ROS ED ROS Narrative Right lower back pain. No illness. No fever. No bowel or bladder incontinence. No dysuria. Constitutional Constitutional ED: Denies chills or fever(s) Eyes Eyes: Denies blurry vision ENT ENT ED: Denies ear pain Cardiovascular Cardiovascular: Denies chest pain or palpitations Respiratory/Chest Respiratory/Chest: Denies dyspnea or dyspnea on exertion Gastrointestinal Gastrointestinal: Denies abdominal pain Genitourinary Genitourinary ED: Denies dysuria or hematuria Musculoskeletal Musculoskeletal: Reports back pain; Denies arthralgias, myalgias or neck pain Integumentary Denies abscess or Abrasions Neurologic Neurologic: Denies headache(s) Psychiatric Psychiatric: Denies anxiety or depression Endocrine Endocrinology: Denies cold intolerance Hematologic/Lymphatic Hematologic/Lymphatic: Denies easy bleeding, easy bruising or lymphadenopathy Allergic/Immunologic Allergic/Immunologic ED: Denies mouth swelling, tongue swelling or urticaria EXAM Physical Exam Narrative Exam Narrative: 33-year-old male no acute distress sitting upright in bed. Accompanied by his significant other. Vital signs are stable afebrile. H EENT exam unremarkable. Neck nontender. Lungs clear. Heart regular rhythm rate about 90. Chest wall ribs nontender. Abdomen soft nontender. Moving all 4 extremities. 5 out of 5 motor strength. Dorsi plantarflexion intact. No cauda equina. Normal medial thigh sensation. Back no cervical, thoracic or lumbar spine tenderness. Right SI tenderness. Positive straight leg raise on the right not the left. Neurologically awake and alert. No focal motor or sensory deficits. Again no cauda equina. Const Vital Signs: 01/21/24 14:36 Temperature 97.2 F L Temperature Source Temporal Pulse Rate 88 Respiratory Rate 17 Blood Pressure 142/91 H Blood Pressure Mean 108 Pulse Ox 96 Oxygen Delivery Method Room Air Positive well nourished and well developed; Negative for cachectic, contractures or unkempt General Appearance ED: well developed and NAD; Negative for unkempt, cachectic, contractures or pallor Nutritional Appearance: Negative for cachectic HEENT Reports moist mucous membranes; Denies dry mucous membranes Negative for trauma or tenderness Mouth ED: No dry mucous membranes Mouth: No dry mucous membranes Eyes PERRL and EOMs intact bilaterally General Eye ED: Negative for pale conjunctiva or scleral icterus Neck no lymphadenopathy, supple and no JVD General: Negative for tenderness Thyroid: Negative for other Chest Wall Chest: Negative for other Resp normal respiratory effort and clear to auscultation bilaterally Effort and Inspection: Negative for pain with movement Auscultation: Negative for rales, rhonchi, wheezes or diminished lung sounds Cardio regular rate, regular rhythm, S1 normal heart sound, S2 normal heart sound and no murmurs Palpation: Negative for palpable S3 Rate: Negative for bradycardia or tachycardic Rhythm: Negative for abnormal rhythm Bruits: Negative for other GI normal to inspection, nondistended, normoactive bowel sounds, soft to palpation, non-tender, non-distended and no masses Inspection: Negative for abdominal distention Palpation: Negative for tender, guarding, mass, pulsatile mass or rebound tenderness present Back/Spine normal to inspection and no thoracic nor lumbar tenderness Back/Spine Narrative: Right SI tenderness. Positive straight leg raise on the right. No cauda equina. Normal medial thigh sensation. Normal dorsi plantarflexion. Cervical Spine: Negative for cervical spine tenderness Thoracic Spine / Upper Back: Negative for paraspinal muscle tenderness Extremity normal to inspection and no clubbing, cyanosis or edema General Extremety ED: Negative for edema or tenderness General Extremity: Negative for edema Neuro oriented x3 and no sensory deficits noted Sensorium / Orientation: alert; Negative for confused, lethargic or stuporous Motor Exam: strength 5/5 throughout Psych mental status grossly normal Appearance: Negative for unkempt Attitude: No agitated Skin no rashes or lesions noted and no wounds General Skin Exam: Negative for jaundice or pallor Lesions: No lesion noted Rashes: No rashes noted Trauma: Negative for abrasion or puncture Wounds: Negative for wounds noted MDM MDM MDM Narrative Medical decision making narrative: 53-year-old male with right sciatica. Treated with IM morphine, p.o. Zofran and prednisone. Will place on prednisone for 9 more days of 40 mg a day starting tomorrow. He is already seen Dr. Christian Fu in the past for this. He will follow-up with him in the [facility] in the next week. If not improving. He knows to return if worse. Use Tylenol for pain.He did not fall he does not need any acute imaging today. He knows if is not improving he may need a lumbar MRI. History & Record Review Discussion w/independent historian: Patient Additional record(s) reviewed:: Prior inpatient record, Prior outpatient record, Prior ED visit and Prior labs Discharge Plan Triage Chief Complaint: Back ED Provider: Brandin Duvall Dx/Rx/DC Orders Clinical Impression: Acute left-sided back pain with sciatica Instructions: ED Sciatica Prescriptions: New prednisone 20 mg tablet 40 mg PO DAILY 9 Days Qty: 18 0RF No Action valsartan-hydrochlorothiazide 80-12.5 mg tablet 1 tab PO DAILY Qty: 30 0RF Primary Care Provider: Care Physician,No Primary Referrals: Christian Fu, [Non-Staff] - 1 Week if not improving Care Physician,No Primary [Primary Care Provider] - Activity Restrictions/Additional Instructions: Prednisone 40 mg a day starting tomorrow. Tylenol for pain. Follow-up with Dr. Christian Fu if not improving. If not improving they may have to consider an MRI if your pain is not getting better. Return to emergency department if worsening pain, fever or bowel or bladder incontinence. Print Language: Maori Disposition Disposition: Home, Self Care
[2024-01-21] MEDS: predniSONE 20 MG Tablet 60 MG PO (15:02)
[2024-01-21] MEDS: Ondansetron ODT 4 MG Tablet PO (15:02)
[2024-01-21] MEDS: morphine 10 MG/ML Syringe IM (15:02)
[2024-01-21 15:24] VITALS: BP 131/60; PULSE 69; RESP 16; TEMP 36.2; O2SAT 100
== END 2024-01-21 15:24 | disposition home or self-care (01) ==
PROVIDERS: Emergency Provider Emergency Medicine; Visit Provider Emergency Medicine
DX: M54.41 Lumbago with sciatica, right side (principal); X50.1XXA Overexertion from prolonged static or awkward postures, initial encounter; Y93.H9 Activity, other involving exterior property and land maintenance, building and construction; G89.29 Other chronic pain; I10 Essential (primary) hypertension; F17.210 Nicotine dependence, cigarettes, uncomplicated; Z79.899 Other long term (current) drug therapy
CPT/HCPCS: 96372; 99282

== ENCOUNTER 2024-07-15 06:01 | Emergency (ER) | payer OTHER, SELFPAY ==
[2024-07-15 06:08] VITALS: BP 170/107; PULSE 83; RESP 16; TEMP 36.9; O2SAT 98; BMI 34.8
[2024-07-15 07:00] VITALS: PULSE 83; RESP 16
[2024-07-15] MEDS: Albuterol 2.5 MG/3 ML VIAL.NEB. INHALATION (07:00)
--- NOTE | 2024-07-15 07:11 | EDS_ITS ---
HPI History of Present Illness Chief Complaint: General Illness Informant: patient Narrative Narrative: 53-year-old male has had a nonproductive cough with some bronchospasm for the last 4 days or so. States he cannot seem to shake it. He is having some chest soreness when he coughs, but he does not have any chest pain without coughing, even when he takes a deep breath. He states it is in the center and feels like it is inside. No leg pain or swelling. No orthopnea. No fevers or chills. He does not feel severely fatigued or have headaches or myalgias. No dyspnea when he is not coughing, sometimes when he is having a coughing fit it feels a little hard to take of breath. He states he was exposed to a chemical at work that he uses, he inhaled some of the fumes, he states it was a vinegar-based cleaning solution, but he was using appropriate PPE as recommended including face mask and eye shield. He does not have asthma that he knows of or any other chronic lung problems. He states his was ill with a respiratory illness a couple weeks ago but she is better now. [facility] Medical History Obesity Tobacco use Hypertension Home Medications ?Medication ?Instructions ?Recorded ?Last Taken ?Type albuterol sulfate 90 mcg/actuation 1 - 2 puff inhalati on Q4H PRN PRN 07/15/24 Unknown Rx aerosol inhaler (Ventolin HFA) Wheezing ##1 Allergy/AdvReac Type Severity Reaction Status Date / Time No Known Allergies Allergy Verified 07/15/24 06:19 Family History Other Diabetes Epilepsy Hypertension Surgical History H/O right wrist surgery History of lateral meniscus repair of left knee Social History household members: spouse Smoking Status: Current every day smoker tobacco type: cigarettes alcohol intake: current substance use type: does not use ROS ROS ED Constitutional Constitutional ED: Denies body ache(s), chills, fever(s) or headache(s) Eyes Eyes: Denies change in vision or diplopia ENT ENT ED: Reports sore throat; Denies ear pain or rhinorrhea Cardiovascular Cardiovascular: Denies chest pain, orthopnea or palpitations Respiratory/Chest Respiratory/Chest: Reports cough and other Details: Dyspnea with bronchospasm only ; Denies dyspnea on exertion or orthopnea Gastrointestinal Gastrointestinal: Denies abdominal pain, diarrhea, nausea or vomiting Genitourinary Genitourinary ED: Denies dysuria or hematuria Musculoskeletal Musculoskeletal: Denies back pain or neck pain Integumentary Denies abscess or rash Neurologic Neurologic: Denies headache(s), paresthesias or weakness Psychiatric Psychiatric: Denies anxiety or suicidal thoughts EXAM Physical Exam Const Vital Signs: 07/15/24 06:02 07/15/24 06:08 07/15/24 07:00 Temperature 98.5 F Temperature Source Oral Pulse Rate 83 83 Respiratory Rate 16 16 Respiratory Effort Normal Non-Labored Respiratory Pattern Normal Blood Pressure 170/107 H Blood Pressure Mean 128 Pulse Ox 98 Oxygen Delivery Method Room Air Positive well nourished and well developed General Appearance ED: well developed and NAD HEENT Reports moist mucous membranes HEENT Narrative: Posterior oropharyngeal erythema without exudates, edema, asymmetry, stridor. normocephalic and atraumatic Eyes PERRL and EOMs intact bilaterally Neck full ROM, no lymphadenopathy and supple Chest Wall inspection of chest normal and palpation of chest normal Resp normal respiratory effort and clear to auscultation bilaterally Resp Narrative: Frequent coughing with bronchospasm, no respiratory distress able to converse in full sentences Cardio regular rate, regular rhythm and no murmurs GI non-tender and non-distended Auscultation: normoactive bowel sounds Palpation: soft Back/Spine no CVA tenderness General Back: other FROM Extremity normal to inspection General Extremety ED: Negative for edema, pulses abnormal or tenderness General Extremity: Negative for edema or pulses abnormal Neuro oriented x3, CN's II-XII intact bilaterally and no sensory deficits noted Sensorium / Orientation: awake and alert Motor Exam: strength 5/5 throughout Psych mental status grossly normal Skin no rashes or lesions noted and no wounds MDM MDM MDM Narrative Medical decision making narrative: Nursing obtained an EKG given that the patient was complaining of chest pain prior to my evaluation, I reviewed EKG and it is normal showing no sign of an acute injury pattern. I think his discomfort is more consistent with bronchitis/bronchial pain/discomfort. Obtained a two-view chest x-ray, on my interpretation it is normal, negative for pneumonia. Radiology in agreement. In the meantime he was given an albuterol treatment, that did help some with his bronchospasm. His COVID/influenza/RSV swab is negative as expected given that he is not feeling poorly. Reassured, I suspect he caught viral bronchitis from his . Supportive care advised no indication for antibiotics at this time. He is little hypertensive but has been coughing a lot, advised to have this rechecked as an outpatient. I do not think any of this is related to the chemical exposure that he was concerned about. He was wearing appropriate PPE, he did not have any direct contact with the chemical, and he does not have reactive airway disease nor symptoms of developing it at this time. Radiography Diagnostic Testing: Clinical Impression(s) from Imaging Studies Chest X-Ray 07/15/24 07:34 IMPRESSION: No evidence of acute disease. Reading Location: [facility] Rhythm Strip Rhythm Strip: Sinus Rhythm Rate: 87 Ectopy: None EKG Initial EKG: Attestation: I personally reviewed and interpreted this EKG as follows: Interpretation: Sinus Rhythm and No Acute Injury Pattern Comments: Nml axis & intervals; nml EKG Discharge Plan Triage Chief Complaint: General Illness ED Provider: Enrique Gong Dx/Rx/DC Orders Clinical Impression: Acute bronchitis with bronchospasm, Episode of hypertension, Chest pain, non- cardiac Instructions: ED Bronchitis, No Antibiotic (Adult) Prescriptions: New albuterol sulfate [Ventolin HFA] 90 mcg/actuation HFA aerosol inhaler 1 - 2 puff inhalation Q4H PRN PRN (Reason: Wheezing) Qty: 1 0RF Primary Care Provider: Care Physician,No Primary Referrals: Doctor,Your [Non-Staff] - 1-2 Weeks (To have blood pressure rechecked when you are feeling better) Print Language: Colombian Disposition Disposition: Home, Self Care
--- NOTE | 2024-07-15 07:27 | EKG12_ITS ---
Test Reason : CP Blood Pressure : */* mmHG Vent. Rate : 87 BPM Atrial Rate : 87 BPM P-R Int : 146 ms QRS Dur : 92 ms QT Int : 358 ms P-R-T Axes : 57 -14 53 degrees QTcB Int : 430 ms Normal sinus rhythm Possible Left atrial enlargement Borderline ECG Confirmed by Jason Hughes ([id number]), editor school photograph RICK PATLE ([id number]) on 07/17/2024 10:41:32 AM Referred By: Confirmed By: Jason Hughes
--- NOTE | 2024-07-15 07:34 | RAD_ITS ---
PROCEDURE: CHEST PA AND LATERAL REASON FOR EXAM: Cough and bronchospasm TECHNIQUE: PA and lateral views of the chest. COMPARISON: 09/20/2021 FINDINGS: The lungs are clear. Pulmonary vascularity appears within limits. No pleural effusion or pneumothorax. The cardiac and mediastinal contours appear within limits. The visualized osseous structures appear within limits. RAD/Chest PA and Lateral IMPRESSION: No evidence of acute disease. Reading Location: [id number]
[2024-07-15 08:34] VITALS: BP 148/62; PULSE 80; RESP 16; TEMP 36.6; O2SAT 98
== END 2024-07-15 08:35 | disposition home or self-care (01) ==
PROVIDERS: Emergency Provider Emergency Medicine; Visit Provider Emergency Medicine
DX: J20.8 Acute bronchitis due to other specified organisms (principal); R07.89 Other chest pain; I10 Essential (primary) hypertension; E66.9 Obesity, unspecified; F17.210 Nicotine dependence, cigarettes, uncomplicated; Z68.34 Body mass index [BMI] 34.0-34.9, adult; Z79.899 Other long term (current) drug therapy
CPT/HCPCS: 71046; 87631; 93005; 94640; 99282

== ENCOUNTER 2025-01-31 06:34 | Emergency (ER) | payer OTHER, SELFPAY ==
[2025-01-31 06:34] VITALS: BP 187/104; PULSE 70; RESP 18; TEMP 36.4; O2SAT 100; BMI 34.8
--- NOTE | 2025-01-31 07:26 | EDS_ITS ---
HPI History of Present Illness Chief Complaint: Back Informant: patient and spouse/S.O. Narrative Narrative: Patient is a 54-year-old male with past medical history of hypertension. He states he noticed right lower back pain on Tuesday morning. He reports that th ere is no recent excessive activity or trauma. He denies any hematuria or dysuria. He states there is no loss of bowel or bladder control and he denies any IV drug use. He states he has been trying [id number] medications with minimal symptom improvement. He reports that it hurts to sit stand or roll. As his symptoms are not improving with time and OTC meds he comes in for evaluation [facility] Medical History Obesity Tobacco use Hypertension Home Medications ?Medication ?Instructions ?Recorded ?Last Taken ?Type methocarbamol 500 mg tablet 1,000 mg (2 x 500 mg) PO 4 X/DAY 01/31/25 Unknown Rx PRN Muscle pain/spasm #56 tabs oxycodone-acetaminophen 5 mg-325 1 tab PO Q6H PRN pain 3 days #12 01/31/25 Unknown Rx mg tablet (Endocet) tabs prednisone 20 mg tablet 40 mg (2 x 20 mg) PO DAILY 5 days 01/31/25 Unknown Rx #10 tabs Allergy/AdvReac Type Severity Reaction Status Date / Time No Known Allergies Allergy Verified 07/15/24 06:19 Family History Other Diabetes Epilepsy Hypertension Surgical History H/O right wrist surgery History of lateral meniscus repair of left knee Social History household members: spouse Smoking Status: Current every day smoker tobacco type: cigarettes alcohol intake: current substance use type: does not use ROS ROS ED Constitutional Constitutional ED: Denies chills or fever(s) ENT ENT ED: Denies sore throat Cardiovascular Cardiovascular: Denies chest pain Respiratory/Chest Respiratory/Chest: Denies cough or dyspnea Gastrointestinal Gastrointestinal: Denies abdominal pain, diarrhea, nausea or vomiting Genitourinary Genitourinary ED: Denies dysuria or hematuria Musculoskeletal Musculoskeletal: Reports back pain Integumentary Denies Abrasions or rash Neurologic Neurologic: Denies headache(s) or paresthesias Hematologic/Lymphatic Hematologic/Lymphatic: Denies easy bleeding or easy bruising EXAM Physical Exam Const Vital Signs: 01/31/25 06:34 Temperature 97.6 F L Temperature Source Oral Pulse Rate 70 Respiratory Rate 18 Blood Pressure 187/104 H Blood Pressure Mean 131 Pulse Ox 100 Oxygen Delivery Method Room Air Positive well nourished and well developed General Appearance ED: well developed; Negative for pallor HEENT HEENT Narrative: Normocephalic atraumatic Eyes PERRL and EOMs intact bilaterally Neck supple Resp normal respiratory effort and clear to auscultation bilaterally Cardio regular rate and regular rhythm Back/Spine no CVA tenderness Back/Spine Narrative: No bony deformity or step-off of the thoracic or lumbar spine; no midline tenderness to palpation There is right paralumbar tenderness and spasm noted that worsens with flexion extension and rotation. No saddle anesthesia. Negative straight leg raise. No clonus or Babinski. Patellar reflexes are plus 2 out of 4 bilaterally. No overlying soft tissue changes to suggest trauma or infection Extremity normal to inspection Neuro oriented x3, CN's II-XII intact bilaterally and no sensory deficits noted Sensorium / Orientation: alert Motor Exam: strength 5/5 throughout Psych mental status grossly normal Skin no rashes or lesions noted and no wounds General Skin Exam: Negative for jaundice or pallor MDM MDM MDM Narrative Medical decision making narrative: Patient arrived to the ER hypertensive but has a past medical history of this. He reported nontraumatic pain to the right low back that is worse with motion. He denies any red flag symptoms such as loss of bowel or bladder control or IV drug use to suggest cauda equina or epidural abscess. He also denies any recent injections or procedures to the back to suggest osteomyelitis or discitis. Physical exam does not reveal overlying soft tissue infection such as cellulitis abscess or shingles. At this time his history and exam is most consistent with lumbosacral strain and therefore he will be given symptomatic care and is otherwise safe for discharge History & Record Review Discussion w/independent historian: Patient and Significant other Discharge Plan Triage Chief Complaint: Back ED Provider: Bishop Cifuentes Dx/Rx/DC Orders Clinical Impression: Acute myofascial strain of lumbosacral region, Hypertension, Tobacco use Instructions: ED Back Spasm, No Trauma, ED Back Sprain/Strain Prescriptions: New prednisone 20 mg tablet 40 mg PO DAILY 5 Days Qty: 10 0RF methocarbamol 500 mg tablet 1,000 mg PO 4X/DAY PRN (Reason: Muscle pain/spasm) Qty: 56 0RF oxycodone-acetaminophen [Endocet] 5-325 mg tablet 1 tab PO Q6H PRN (Reason: pain) 3 Days Qty: 12 0RF Primary Care Provider: Care Physician,No Primary Referrals: Marty Fitch MD [Med Staff - Active Staff, Family Practice] Care Physician,No Primary [Primary Care Provider, Medical] Activity Restrictions/Additional Instructions: Please continue to stretch and heat your low back to help reduce pain and speed healing. Take the prescribed medication as directed to help control symptoms. Return to the ER should you have any further concerns Print Language: Turkmen Disposition Disposition: Home, Self Care Discharge Date/Time: 01/31/25 09:02
--- OUTSIDE RECORDS SUMMARY | 2025-01-31 07:27 | XMS RPT_ITS | CCD ---
Author Organization [facility] Care Team Providers Care Toxicology Teacher Name Role Phone JOHNATHAN MCMULLEN Unavailable Unavailable BARRINGTON TALLEY Unavailable Unavailable Unavailable Primary Care Provider Unavailabl e Unavailable Primary Care Provider Unavailabl e Elle Barahona Attending Unavailable Care Physician, No Primary Primary Care Unava ilable Care Physician, No Primary Primary Care Unava ilable Enrique Gong Attending Unavailable Brandin Duvall Attending Unavailable Care Physician, No Primary Primary Care Unava ilable LAURA BLUE Attending Unavailable Medications Current Medications Medication Drug Class(es) Dates Sig (Normalized) Sig (Original) albuterol 5 mg/ml inhalation solution (12 sources) beta2-Adrenergic Agonist Start: 07-07-2017 albuterol (PROVENTIL) 5 mg/mL nebu Inhale 0.5 mL as instructed one time only for 1 dose. 1 DOSE NOW - BACK OFFICE. PLACE 0.5 ML PER DROPPER AND 2.5 ML OF NORMAL SALINE INTO RESERVOIR. 1 mL 07/07/2017 Active Start: 07-07-2017 take 2 puff(s) by in halation every four hours as needed albuterol HFA (PROAIR HFA) 90 mcg/actuation inhaler Inhale 2 Puffs as instructed every 4 hours as needed. 1 Inhaler 07/07/2017 Active Comment on above: Inhale 0.5 mL as ins tructed one time only for 1 dose. 1 DOSE NOW - BACK OFFICE. PLACE 0.5 ML PER DROPPER AND 2.5 ML OF NORMAL SALINE INTO RESERVOIR. Inhale 2 Puffs as in structed every 4 hours as needed. brompheniramine maleate 0.4 mg/ml / dextromethorphan hydrobromide 2 mg/ml / pseudoephedrine hydrochloride 6 mg/ml oral solution (6 sources) alpha-Adrenergic Agonist, Uncompetitive M-wikkjg-Y-aspartate Receptor Antagonist, Sigma-1 Agonist Start: 2017 take 5-10 mL by mouth every six hours as needed Brompheniramine-Pseud oeph-DM (BROMFED DM) 2-30-10 mg/5 mL syrup Take 5-10 ml po q6h prn 120 mL 07/07/2017 Active Comment on above: Take 5-10 ml po q6h prn cyclobenzaprine hydrochloride 10 mg oral tablet (5 sources) Muscle Relaxant Start: 2023 take 1 tablet by mouth every eight hours as needed cyclobenzaprine (FLEXERIL) 10 mg tablet Take 1 tablet by mouth three times a day as needed for muscle spasm. 12 tablet 06/21/2023 Active Comment on above: Take 1 tablet by ilsa th three times a day as needed for muscle spasm. diclofenac sodium 0.01 mg/mg topical gel (2 sources) Nonsteroidal Anti-inflammatory Drug Start: 2023 diclofenac (VOLTAREN ARTHRITIS PAIN) 1 % topical gel Indications: Acute pain of right knee Apply 2 g to affected area four times daily. 20 g 1 10/31/2023 Active famotidine 20 mg oral tablet (1 source) Histamine-2 Receptor Antagonist Start: 2024 End: 2024 take 1 tablet by mouth twice daily famotidine (PEPCID) 20 mg tablet Indications: Bee sting reaction, accidental or unintentional, initial encounter Take 1 tablet by mouth two times a day for 7 days. 14 tablet 12/23/2024 12/30/2024 Active hydroCHLOROthiazide 12.5 mg / valsartan 80 mg oral tablet (7 sources) Thiazide Diuretic, Angiotensin 2 Receptor Trey Start: 2022 Valsartan-hydroCHLORO thiazide 80-12.5 mg per tablet DAILY 12/21/2022 Active Start: 12-21-2022 take 1 tablet by ilsa th once daily Valsartan-Hydrochlorothiazide Active 1 T ABLET PO DAILY December 21, 2022 12:00am Comment on above: DAILY lidocaine 0.05 mg/mg medicated patch (2 sources) Antiarrhythmic, Amide Local Anesthetic Start: 10-31-19 apply 1 dose transdermal route every twelve hours lidocaine (LIDODERM) 5 % Indications: Acute pain of right knee Apply 1 Patch as directed every 12 hours. Remove old patch prior to placing new patch. Location: right knee 15 Patch 10/31/2023 Active loratadine 10 mg oral tablet (1 source) Start: 12-24-19 End: 12-31-19 take 1 tablet by mouth once daily loratadine (CLARITIN) 10 mg tablet Indications: Bee sting reaction, accidental or unintentional, initial encounter Take 1 tablet by mouth once daily for 7 days. 7 tablet 12/23/2024 12/30/2024 Active naproxen 500 mg oral tablet (6 sources) Nonsteroidal Anti-inflammatory Drug Start: 02-27-20 take 1 tablet by mouth twice daily as needed for pain naproxen (NAPROSYN) 500 mg tablet Indications: Odontalgia Take 1 tablet by mouth twice daily as needed (for pain/inflammation) . Take with food. 60 tablet 0 02/26/2015 Active Comment on above: Take 1 tablet by [facility] twice daily as needed (for pain/inflammation). Take with food. predniSONE 20 mg oral tablet (9 sources) Start: 12-24-19 End: 12-29-19 take 2 tablets by mouth once daily predniSONE (DELTASONE) 20 mg tablet Indications: Bee sting reaction, accidental or unintentional, initial encounter Take 2 tablets by mouth once daily for 5 days. 10 tablet 12/23/2024 12/28/2024 Active Start: 07-07-2017 End: 06-26-2023 take 2 tablets by mouth once daily predniSONE (DELTASONE) 20 mg tablet Prednisone 40 mg (2-20mg tablets) po QD for 5 days 10 tablet 07/07/2017 Active Comment on above: Take 2 tablets by mo [facility] once daily for 5 days. Prednisone 40 mg (2- 20mg tablets) po QD for 5 days Completed/Discontinued Medications Medication Drug Class(es) Dates Sig (Normalized) Sig (Original) acetaminophen 325 mg / HYDROcodone bitartrate 5 mg oral tablet (2 sources) Opioid Agonist Start: 06-23-2020 End: 06-26-2020 take 1 tablet by mouth every six hours as needed Hydrocodone-Aceta minophen Discontinued 1 TABLET PO EVERY 6 HOURS NEEDED 12 3 June 23, 2020 June 26, 2020 1:03am 1 ml ketorolac tromethamine 30 mg/ml injection (1 source) Nonsteroidal Anti-inflammatory Drug, Cyclooxygenase Inhibitor Start: 06-21-2023 End: 06-21-2023 keTORolac 30 mg injection (Toradol) Start: 06-21-2023 End: 06-21-2023 keTORolac 30 mg injection (T oradol) lisinopril 20 mg oral tablet (1 source) Angiotensin Converting Enzyme Inhibitor Start: 07-05-2019 End: 06-21-2023 take 1 tablet by mouth once daily lisinopril (ZESTRIL, PRINIVIL) 20 mg tablet Take 1 tablet by mouth once daily. 30 tablet 1 07/05/2019 06/21/2023 Discontinued Comment on above: Take 1 tablet by ilsa th once daily. 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; Translations: [Other chondrocalcinosis, unspecified knee] Onset: 11-06-2012 11-06-2012 Chronic Other acquired deformities (2 sources) Spondylolysis; Translations: [Spondylolysis, lumbar region] 06-21-2023 Episodic Other acquired deformities (1 source) Lumbar spondylolisthesis; Translations: [Spondylolisthesis, lumbar region] 06-22-2023 Episodic Other non-traumatic joint disorders (3 sources) Pain in unspecified knee; Translations: [Knee pain] 09-20-2021 Episodic Poisoning by nonmedicinal substances (2 sources) Bee sting; Translations: [Toxic effect of venom of bees, accidental (unintentional), initial encounter] Onset: 12-23-2024 12-23-2024 Episodic Sprains and strains (6 sources) Strain of tendon of right wrist; Translations: [Strain of unspecified muscle, fascia and tendon at wrist and hand level, right hand, initial encounter] 09-20-2021 Episodic Superficial injury; contusion (2 sources) Right wrist contusion; Translations: [Contusion of right wrist, initial encounter] 09-20-2021 Episodic Unclassified (1 source) Cough, unspecified; Translations: [Cough, unspecified] Onset: 07-26-2024 Unclassified (1 source) Low back pain, unspecified; Translations: [Low back pain, unspecified] Onset: 02-11-2024 Past or Other Problems Problem Classification Problem Date Documented Da te Episodic/Chronic Joint disorders and dislocations; trauma-related (6 sources) Tear of meniscus of knee; Translations: [Unspecified tear of unspecified meniscus, current injury, right knee, initial encounter] Onset: 11-06-2012 11-06-2012 Episodic Spondylosis; intervertebral disc disorders; other back problems (8 sources) Acute low back pain; Translations: [Acute bilateral low back pain without sciatica] Onset: 12-26-2013 06-21-2023 Episodic Results Test Name Value Interpretation Reference Range Facil ity CNOVon 12-23-2024 CNOV Office Visit ([facility]) JACKY BREWER ([id number]) 1970 M Date Time Provider Department 12/23/24 1:30 PM LAURA BLUE During your visit today, we recorded the following information about you: Temperature Pulse Respiration Blood pressure 97.7 degrees 82/minute 19/minute 140/96 Weight 100.4 kg Laura Blue PA-C 12/23/2024 2:02 PM Signed [facility] NOTE No primary care provider on file. No primary provider on file. Jacky Brewer is a 54-year-old male presenting with neck and shoulder pain and swelling following a bee sting. Jacky was stung by a bee yesterday at approximately 0930, with the stinger remaining embedded for approximately 6 hours before removal. He reports subsequent swelling and pain in the neck and shoulder, which has progressively worsened since the incident. He applied Biofreeze topically and took Benadryl orally for symptom relief. He denies dyspnea or sensation of internal neck swelling. He reports feeling unwell this morning and notes that he did not snore last night, which is unusual for him. Denies shortness of breath. No sensation of tongue or throat swelling. CURRENT MEDICATIONS[1] PAST MEDICAL HISTORY[2] PAST SURGICAL HISTORY Procedure Laterality Date PAST SURGICAL HISTORY OF 1988 right wrist tendon repair post laceration with glass PAST SURGICAL HISTORY OF foreign body removal per self right knee with repair SOCIAL HISTORY[3] Physical Exam: BP 140/96 Pulse 82 Temp 36.5 ?C (97.7 ?F) Resp 19 Wt 100.4 kg (221 lb 5.5 oz) SpO2 95% BMI 33.17 kg/m? General appearance: Well appearing, alert, in no acute distress, well-hydrated, well nourished. Skin: swelling and erythema to right upper back, neck. Swelling to right side of nasal bridge Eyes: Anicteric sclera. Pupils are equally round and reactive to light. Extraocular movements are intact. Neck: supple, no lymphadenopathy noted. Lungs: Lungs clear to auscultation. No wheezing, rhonchi, rales. Unlabored on room air Heart: RRR without murmur, gallop, or rubs. No ectopy Assessment/Plan: 1. Bee sting reaction, accidental or unintentional, initial encounter (T63.441A) Localized swelling and pain in the neck and shoulder following a bee sting. No signs of infection observed. Stinger was embedded for approximately 6 hours before removal. - Initiated Prednisone 40 mg orally once daily for 5 days to reduce inflammation and pain. - Prescribed Pepcid 40 mg orally twice daily for 7 days for its antihistamine properties. - Advised continuation of antihistamines; recommended Zyrtec or Claritin once daily for 7 days as alternatives to Benadryl to avoid sedation. - Instructed to monitor for increased redness or drainage, which may indicate infection and necessitate antibiotic therapy. Recording using Afrax[employer] software for draft documentation of the visit was discussed with the patient/authorized unit support representative; all questions welcomed and answered. Patient/authorized unit support representative agreed to proceed. SARKIS Salas, PAAsimC MDM [1] Current Outpatient Medications Medication Sig lidocaine (LIDODERM) 5 % Apply 1 Patch as directed every 12 hours. Remove old patch prior to placing new patch. Location: right knee (Patient not taking: Reported on 12/23/2024) diclofenac (VOLTAREN ARTHRITIS PAIN) 1 % topical gel Apply 2 g to affected area four times daily. (Patient not taking: Reported on 12/23/2024) Valsartan-hydroCHLORO thiazide 80-12.5 mg per tablet DAILY (Patient not taking: Reported on 06/21/2023) cyclobenzaprine (FLEXERIL) 10 mg tablet Take 1 tablet by mouth three times a day as needed for muscle spasm. (Patient not taking: Reported on 10/31/2023) albuterol (PROVENTIL) 5 mg/mL nebu Inhale 0.5 mL as instructed one time only for 1 dose. 1 DOSE NOW - BACK OFFICE. PLACE 0.5 ML PER DROPPER AND 2.5 ML OF NORMAL SALINE INTO RESERVOIR. (Patient not taking: Reported on 12/23/2024) predniSONE (DELTASONE) 20 mg tablet Prednisone 40 mg (2-20mg tablets) po QD for 5 days (Patient not taking: Reported on 10/31/2023) albuterol HFA (PROAIR HFA) 90 mcg/actuation inhaler Inhale 2 Puffs as instructed every 4 hours as needed. (Patient not taking: Reported on 07/05/2019) Brompheniramine-Pseud oeph-DM (BROMFED DM) 2-30-10 mg/5 mL syrup Take 5-10 ml po q6h prn (Patient not taking: Reported on 07/05/2019) naproxen (NAPROSYN) 500 mg tablet Take 1 tablet by mouth twice daily as needed (for pain/inflammation). Take with food. (Patient not taking: Reported on 10/31/2023) No current facility-administered medications for this visit. [2] Past Medical History: No date: Back pain No date: Cataracts, bilateral No date: Hypertension No date: Seasonal allergies [3] Social History Tobacco Use Smoking status: Every Day Current packs/day: 1.00 Average packs/day: 1 pack/day for 15.0 years (15.0 ttl (more content not included)... Normal [facility] 12 Lead EKGon 07-15-2024 12 Lead EKG [facility] Cardiovascular Services [address] [place] [address] 12 Lead EKG 07/15/24 0559 MR#: [id number] Acct: [id number] Name: JACKY BREWER Rep #: [id number] : 1970 53 From: Jason Hughes MD Attending Dr: Status: DEP ER Ordering Dr: Enrique Gong MD Date: 07/15/24 Location: ED Sex: M C Admitted: Test Reason : CP Blood Pressure : */* mmHG Vent. Rate : 87 BPM Atrial Rate : 87 BPM P-R Int : 146 ms QRS Dur : 92 ms QT Int : 358 ms P-R-T Axes : 57 -14 53 degrees QTcB Int : 430 ms Normal sinus rhythm Possible Left atrial enlargement Borderline ECG Confirmed by Jason Hughes ([id number]), pictures editor RICK PATEL ([id number]) on 07/17/2024 10:41:32 AM Referred By: Confirmed By: Jason Hughes 07/17/24 1041 Date Jason Hughes MD CC: Dr. Enrique Gong MD; No Primary Care Physician Signed Normal [facility] Chest PA and Lateralon 07-15 Chest PA and Lateral [facility] Imaging Services [address] [place] [address] [id number] Chest PA and Lateral MR#: [id number] Acct: [id number] Name: JACKY BREWER Rep #: [id number] : 1970 M 53 From: Boone Dong MD PCP: Care Physician,No Primary Status: REG ER Study: Chest PA and Lateral Date of Exam: 07/15/24 Exam# [id number] Ordering Dr: Enrique Gong MD PROCEDURE: CHEST PA AND LATERAL REASON FOR EXAM: Cough and bronchospasm TECHNIQUE: PA and lateral views of the chest. COMPARISON: 09/20/2021 FINDINGS: The lungs are clear. Pulmonary vascularity appears within limits. No pleural effusion or pneumothorax. The cardiac and mediastinal contours appear within limits. The visualized osseous structures appear within limits. RAD/Chest PA and Lateral IMPRESSION: No evidence of acute disease. Reading Location: [id number] CC: Dr. Enrique Gong MD; No Primary Care Physician Derrick Hand: Signed Normal [facility] Emergency Department Summary on 07-15-2024 Emergency Department Summary [facility] Medical Records Department [address] [place] [address] Emergency Department Summary 07/15/24 MR#: [id number] Acct: [id number] Name: JACKY BREWER Rep #: [id number] : 1970 53 From: Enrique Gong MD PCP: Care Physician,No Primary Status:REG ER Location: ED HPI History of Present Illness Chief Complaint: General Illness Informant: patient Narrative Narrative: 53-year-old male has had a nonproductive cough with some bronchospasm for the last 4 days or so. States he cannot seem to shake it. He is having some chest soreness when he coughs, but he does not have any chest pain without coughing, even when he takes a deep breath. He states it is in the center and feels like it is inside. No leg pain or swelling. No orthopnea. No fevers or chills. He does not feel severely fatigued or have headaches or myalgias. No dyspnea when he is not coughing, sometimes when he is having a coughing fit it feels a little hard to take of breath. He states he was exposed to a chemical at work that he uses, he inhaled some of the fumes, he states it was a vinegar-based cleaning solution, but he was using appropriate PPE as recommended including face mask and eye shield. He does not have asthma that he knows of or any other chronic lung problems. He states his was ill with a respiratory illness a couple weeks ago but she is better now. [facility] Medical History Obesity Tobacco use Hypertension Home Medications ???Medication ???Instructions ???Recorded ???Last Taken ???Type albuterol sulfate 90 mcg/actuation 1 - 2 puff inhalation Q4H PRN IA N 07/15/24 Unknown Rx aerosol inhaler (Ventolin HFA) Wheezing ##1 Allergy/AdvReac Type Severity Reaction Status Date / Time No Known Allergies Allergy Verified 07/15/24 06:19 Family History Other Diabetes Epilepsy Hypertension Surgical History H/O right wrist surgery History of lateral meniscus repair of left knee Social History household members: spouse Smoking Status: Current every day smoker tobacco type: cigarettes alcohol intake: current substance use type: does not use ROS ROS ED Constitutional Constitutional ED: Denies body ache(s), chills, fever(s) or headache(s) Eyes Eyes: Denies change in vision or diplopia ENT ENT ED: Reports sore throat; Denies ear pain or rhinorrhea Cardiovascular Cardiovascular: Denies chest pain, orthopnea or palpitations Respiratory/Chest Respiratory/Chest: Reports cough and other Details: Dyspnea with bronchospasm only ; Denies dyspnea on exertion or orthopnea Gastrointestinal Gastrointestinal: Denies abdominal pain, diarrhea, nausea or vomiting Genitourinary Genitourinary ED: Denies dysuria or hematuria Musculoskeletal Musculoskeletal: Denies back pain or neck pain Integumentary Denies abscess or rash Neurologic Neurologic: Denies headache(s), paresthesias or weakness Psychiatric Psychiatric: Denies anxiety or suicidal thoughts EXAM Physical Exam Const Vital Signs: 07/15/24 06:02 07/15/24 06:08 07/15/24 07:00 Temperature 98.5 F Temperature Source Oral Pulse Rate 83 83 Respiratory Rate 16 16 Respiratory Effort Normal Non-Labored Respiratory Pattern Normal Blood Pressure 170/107 H Blood Pressure Mean 128 Pulse Ox 98 Oxygen Delivery Method Room Air Positive well nourished and well developed General Appearance ED: well developed and NAD HEENT Reports moist mucous membranes HEENT Narrative: Posterior oropharyngeal erythema without exudates, edema, asymmetry, stridor. normocephalic and atraumatic Eyes PERRL and EOMs intact bilaterally Neck full ROM, no lymphadenopathy and supple Chest Wall inspection of chest normal and palpation of chest normal Resp normal respiratory effort and clear to auscultation bilaterally Resp Narrative: Frequent coughing with bronchospasm, no respiratory distress able to converse in full sentences Cardio regular rate, regular rhythm and no murmurs GI non-tender and non-distended Auscultation: normoactive bowel sounds Palpation: soft Back/Spine no CVA tenderness General Back: other FROM Extremity normal to inspection General Extremety ED: Negative for edema, pulses abnormal or tenderness General Extremity: Negative for edema or pulses abnormal Neuro oriented x3, CN's II-XII intact bilaterally and no sensory deficits noted Sensorium / Orientation: awake and alert Motor Exam: strength 5/5 throughout Psych mental status grossly normal Skin no rashes or lesions noted and no wounds MDM MDM MDM Narrati (more content not included)... Normal [facility] M100.678on 07-15-2024 M100.678 SARS-CoV-2 (COVID 19 ) Negative INFLUENZA A Negative INFLUENZA B Negative RSV PCR Negative Normal [facility] Comment on above: Performed By: #### M 100.678 #### [facility] [address] [facility] [place], [address] Emergency Department Summary on 01-21-2024 Emergency Department Summary [facility] Medical Records Department [address] [place] [address] Emergency Department Summary 01/21/24 MR#: [id number] Acct: [id number] Name: JACKY BREWER Rep #: [id number] : 1970 53 From: Brandin Duvall MD PCP: Care Physician,No Primary Status:REG ER Location: ED HPI History of Present Illness Chief Complaint: Back Informant: patient and spouse/S.O. Onset/Context/Timing Onset: Weeks Context: Gradual Onset Timing: Intermittent Quality: Sharp Location: Lumbar and Right Leg Current Severity: Moderate Maximum Severity: Moderate Worsened by: improves with Movement Relieved by: Nothing Associated Symptoms Associated Symptoms: Tingling and Radiation to Right Leg; Negative for Radiation to Left Leg, Fever, Abdominal Pain, Dysuria, Unable to Ambulate, Unable to Transfer, Urinary Retention, Urinary Incontinence, Constipation or Fecal Incontinence Narrative Narrative: 53-year-old male history of an L5 lumbar fracture. States he has chronic back pain for last 2 weeks it has been flared up. Today he was doing a lot of yard work and developed increased pain in his right lower back radiating to his right buttock and down his right hamstring. With some tingling. Denies any bowel or bladder incontinence. No fever. No fall or trauma. He is never had back surgery. Prior similar symptoms: Yes Recent Illness/Hospitalizati on: No PFSH PFSH Medical History Obesity Tobacco use Hypertension Home Medications ???Medication ???Instructions ???Recorded ???Last Taken ???Type valsartan 80 1 tab PO DAILY #30 tabs 12/21/22 Unknown Rx mg-hydrochlorothiazid e 12.5 mg tablet prednisone 20 mg tablet 40 mg (2 x 20 mg) PO DAILY 9 days 01/21/24 Unknown Rx #18 tabs Allergy/AdvReac Type Severity Reaction Status Date / Time No Known Allergies Allergy Verified 01/21/24 14:35 Family History Other Diabetes Epilepsy Hypertension Surgical History H/O right wrist surgery History of lateral meniscus repair of left knee Social History household members: spouse Smoking Status: Current every day smoker tobacco type: cigarettes alcohol intake: current substance use type: does not use ROS ROS ED ROS Narrative Right lower back pain. No illness. No fever. No bowel or bladder incontinence. No dysuria. Constitutional Constitutional ED: Denies chills or fever(s) Eyes Eyes: Denies blurry vision ENT ENT ED: Denies ear pain Cardiovascular Cardiovascular: Denies chest pain or palpitations Respiratory/Chest Respiratory/Chest: Denies dyspnea or dyspnea on exertion Gastrointestinal Gastrointestinal: Denies abdominal pain Genitourinary Genitourinary ED: Denies dysuria or hematuria Musculoskeletal Musculoskeletal: Reports back pain; Denies arthralgias, myalgias or neck pain Integumentary Denies abscess or Abrasions Neurologic Neurologic: Denies headache(s) Psychiatric Psychiatric: Denies anxiety or depression Endocrine Endocrinology: Denies cold intolerance Hematologic/Lymphatic Hematologic/Lymphatic : Denies easy bleeding, easy bruising or lymphadenopathy Allergic/Immunologic Allergic/Immunologic ED: Denies mouth swelling, tongue swelling or urticaria EXAM Physical Exam Narrative Exam Narrative: 33-year-old male no acute distress sitting upright in bed. Accompanied by his significant other. Vital signs are stable afebrile. H EENT exam unremarkable. Neck nontender. Lungs clear. Heart regular rhythm rate about 90. Chest wall ribs nontender. Abdomen soft nontender. Moving all 4 extremities. 5 out of 5 motor strength. Dorsi plantarflexion intact. No cauda equina. Normal medial thigh sensation. Back no cervical, thoracic or lumbar spine tenderness. Right SI tenderness. Positive straight leg raise on the right not the left. Neurologically awake and alert. No focal motor or sensory deficits. Again no cauda equina. Const Vital Signs: 01/21/24 14:36 Temperature 97.2 F L Temperature Source Temporal Pulse Rate 88 Respiratory Rate 17 Blood Pressure 142/91 H Blood Pressure Mean 108 Pulse Ox 96 Oxygen Delivery Method Room Air Positive well nourished and well developed; Negative for cachectic, contractures or unkempt General Appearance ED: well developed and NAD; Negative for unkempt, cachectic, contractures or pallor Nutritional Appearance: Negative for cachectic HEENT Reports moist mucous membranes; Denies dry mucous membranes Negative for trauma or tenderness Mouth ED: No dry mucous membranes Mouth: No dry mucous membranes Eyes PERRL and EOMs intact bilaterally General Eye E (more content not included)... Normal [facility] XR Knee - right 4 Viewson IMPRESSION: No acute osseous abnormality Derrick Hand: [place] Transcribe Date/Time: Oct 31 2023 12:29P Dictated by : DANETTE NATION MD This examination was interpreted and the report reviewed and electronically signed by: DANETTE NATION MD on Oct 31 2023 12:31PM [facility] DIVISION OF RADIOLOGY * * *Final Report* * * DATE OF EXAM: Oct 31 2023 12:15PM WOX 5203 - XR KNEE 4V AP/PA BOTH+LAT/MARCIA RT / PROCEDURE REASON: Acute pain of right knee * * * * Physician Interpretation * * * * EXAMINATION: XR KNEE 4V AP/PA BOTH+LAT/MARCIA RT CLINICAL HISTORY: Right knee pain Technique: XR KNEE 4V AP/PA BOTH+LAT/MARCIA RT -- RIGHT with 4 views on 4 images Comparison: None RESULT: No acute fracture or dislocation. Joint spaces are maintained. DIVISION OF RADIOLOGY Provider[facility]23 * * *Final Report* * * DATE OF EXAM: Oct 31 2023 12:15PM WOX 5203 - XR KNEE 4V AP/PA BOTH+LAT/MARCIA RT / PROCEDURE REASON: Acute pain of right knee * * * * Physician Interpretation * * * * EXAMINATION: XR KNEE 4V AP/PA BOTH+LAT/MARCIA RT CLINICAL HISTORY: Right knee pain Technique: XR KNEE 4V AP/PA BOTH+LAT/MARCIA RT -- RIGHT with 4 views on 4 images Comparison: None RESULT: No acute fracture or dislocation. Joint spaces are maintained. IMPRESSION IMPRESSION: No acute osseous abnormality Derrick Hand: [facility] Transcribe Date/Time: Oct 31 2023 12:29P Dictated by : DANETTE NATION MD This examination was interpreted and the report reviewed and electronically signed by: DANETTE NATION MD on Oct 31 2023 12:31PM EST [facility] Radiology Study observation (narrative) [facility] XR Knee - right 4 ViewsOrder ed By: Ccf Provider on 10-31-2023 [facility] XR LUMBAR GENERAL 3V AP/LAT/ L5-S1on 06-21-2023 [facility] XR Lumbar spine 3 Viewson IMPRESSION: 1. Degenerative changes as described. 2. 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 Derrick Hand: [facility] Transcribe Date/Time: Jun 21 2023 11:59A Dictated by : DAVID BRUNO MD This examination was interpreted and the report reviewed and electronically signed by: DAVID BRUNO MD on Jun 21 2023 12:00PM [facility] DIVISION OF RADIOLOGY * * *Final Report* * * DATE OF EXAM: Jun 21 2023 11:59AM WOX 5228 - XR LUMBAR 3V AP/LAT/L5-S1 / PROCEDURE REASON: Acute bilateral low back pain without sciatica * * * * Physician Interpretation * * * * CLINICAL INDICATION: Back pain TECHNIQUE: 3 view radiographic study of the lumbar spine COMPARISON: None FINDINGS: There are 5 nonrib-bearing lumbar vertebral bodies. There is preservation of the normal lumbar lordosis. There is preservation of vertebral body height. Miniscule marginal osteophyte formation throughout the lumbar spine. Moderate disc space narrowing at L5/S1. 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 DIVISION OF RADIOLOGY Provider, Gray Dugan - 06/21/2023 * * *Final Report* * * DATE OF EXAM: Jun 21 2023 11:59AM WOX 5228 - XR LUMBAR 3V AP/LAT/L5-S1 / PROCEDURE REASON: Acute bilateral low back pain without sciatica * * * * Physician Interpretation * * * * CLINICAL INDICATION: Back pain TECHNIQUE: 3 view radiographic study of the lumbar spine COMPARISON: None FINDINGS: There are 5 nonrib-bearing lumbar vertebral bodies. There is preservation of the normal lumbar lordosis. There is preservation of vertebral body height. Miniscule marginal osteophyte formation throughout the lumbar spine. Moderate disc space narrowing at L5/S1. 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 IMPRESSION IMPRESSION: 1. Degenerative changes as described. 2. 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 Derrick [facility] Transcribe Date/Time: Jun 21 2023 11:59A Dictated by : DAVID BRUNO MD This examination was interpreted and the report reviewed and electronically signed by: DAVID BRUNO MD on Jun 21 2023 12:00PM EST [facility] Radiology Study observation (narrative) [facility] XR Lumbar spine 3 ViewsOrder ed By: Ccf Provider on 06-21-2023 [facility] Absolute lymphocyte counton 09-20-2021 Lymphocytes Auto (Unsp spec) [#/Vol] 3.89 10*3/uL 0.83-4.51 [facility] Work Phone: Basophil percentageon 2021 Basophils/100 WBC (Bld) 0.8 % 0-1 [facility] Work Phone: Chloride [Moles/Vol] 105 mmol/L 98-107 [facility] Work Phone: Eosinophils/100 WBC (Bld) 5.1 % 0-5 [facility] Work Phone: Glucose [Mass/Vol] 91 mg/dL 74-106 [facility] Work Phone: Neutrophils (Bld) [#/Vol] 5.2 10*3/uL 2.0-7.7 [facility] Work Phone: Neutrophils/100 WBC (Bld) 50.2 % 47-70 [facility] Work Phone: Potassium [Moles/Vol] 4.0 mmol/L 3.5-5.1 [facility] Work Phone: Sodium [Moles/Vol] 137 mmol/L 136-145 [facility] Work Phone: WBC (Bld) [#/Vol] 10.4 10*3/uL 4.4-11.0 [facility] Work Phone: Blood erythrocytes count (nu mber/volume)on 09-20-2021 RBC (Bld) [#/Vol] 4.69 10*6/uL 4.6-6.2 [facility] Work Phone: Blood hemoglobin measurement (mass/volume)on 09-20-2021 Hemoglobin (Bld) [Mass/Vol] 15.5 g/dL 13.0-16.5 [facility] Work Phone: Blood lymphocytes/100 leukoc yteson 09-20-2021 Lymphocytes/100 WBC (Bld) 37.4 % 19-41 [facility] Work Phone: Blood monocytes/100 leukocyt eson 09-20-2021 Monocytes/100 WBC (Bld) 6.1 % 0-10 [facility] Work Phone: Blood platelet mean volumeon 09-20-2021 Platelet mean volume (Bld) [Entitic vol] 11.1 fL 6.2-12.0 [facility] Work Phone: Determination of erythrocyte mean corpuscular volume (MCV)on 09-20-2021 MCV (RBC) [Entitic vol] 95.9 fL 80-94 [facility] Work Phone: Hematocrit Auto (Bld) [Volum e fraction]on 05-08-2022 Hematocrit (Bld) [Volume fraction] 45.0 % 40-54 [facility] Work Phone: Laboratory - Chemistry and C hemistry - challengeon 09-20-2021 CO2 [Moles/Vol] 24.0 mmol/L 21.0-32.0 [facility] Work Phone: Urea nitrogen/Creatinine [Mass ratio] 11.3 mg/mg 10-20 [facility] Work Phone: Laboratory - Hematology and Cell countson 09-20-2021 Erythrocyte distribution width (RBC) [Entitic vol] 42.5 fL 35.1-43.9 [facility] Work Phone: Erythrocyte distribution width (RBC) [Ratio] 12.1 % 11.6-14.6 [facility] Work Phone: Immature granulocytes/100 WBC (Bld) 0.400 % 0.0-0.9 [facility] Work Phone: Comment on above: IG% - Immature Granu locytes (promyelocytes, myelocytes and metamyelocytes) > 1% indicates that a LEFT SHIFT is Present. MCH (RBC) [Entitic mass] 33.0 pg 27.0-32.0 [facility] Work Phone: Nucleated RBC/100 WBC (Bld) [Ratio] 0 % 0-5 [facility] Work Phone: MCHC Auto (RBC) [Mass/Vol]on 09-20-2021 MCHC (RBC) [Mass/Vol] 34.4 g/dL 32-36 [facility] Work Phone: No Panel Informationon 09-20 Troponin I High Sensitivity 4 pg/mL 3.0-78.0 [facility] Work Phone: Comment on above: Please Note: New [place]dalene t Units and Gender Specific Reference Ranges. For more information see Policy Stat Procedure Gay High Sensitivity Troponin (TNIH) and attachments. Estimated Creatinine Clearance Calc 104.50 ml/min [facility] Work Phone: Estimated GFR (MDRD) Amer 131 mL/min >60 [facility] Work Phone: Comment on above: GFR Calc Estimated GFR (MDRD) Non-Af Amer 108 mL/min >60 [facility] Work Phone: Comment on above: Non- GFR Calc Platelets bldon 09-20-2021 Platelets (Bld) [#/Vol] 168 10*3/uL 150-450 [facility] Work Phone: Serum or plasma calcium richard urement (mass/volume)on 09-20-2021 Calcium [Mass/Vol] 9.0 mg/dL 8.5-10.1 [facility] Work Phone: Serum or plasma creatinine m easurement (mass/volume)on 09-20-2021 Creatinine [Mass/Vol] 0.80 mg/dL 0.70-1.30 [facility] Work Phone: Comment on above: The validity of the calculated GFR & GFRAA in patients over 70 years has not been determined. Clinical correlation is essential. Serum or plasma urea nitroge n measurement (mass/volume)on 09-20-2021 Urea nitrogen [Mass/Vol] 9 mg/dL 7-18 [facility] Work Phone: Thin prep Papanicolaou smear with manual screeningon 09-20-2021 Thin prep Papanicolaou smear with manual screening 8 5-15 [facility] Work Phone: [facility] Note on 10-23-2017 [facility] Note Normal [facility] Vital Signs Date Time Vital Sign Value Performing Clinician Facility 12-23-2024 13:45-0400 Body mass index (BMI) [Ratio] 33.17 kg/m2 Laura Blue PA-C Work Phone: [facility] 12-23-2024 13:45-0400 Body temperature 97.7 [degF] Laura Blue PA-C Work Phone: [facility] 12-23-2024 13:45-0400 Body weight 100.4 kg Laura Blue PA-C Work Phone: [facility] 12-23-2024 13:45-0400 Diastolic blood pressure 96 mm[Hg] Laura Blue PA-C Work Phone: [facility] 12-23-2024 13:45-0400 Heart rate 82 /min Laura Blue PA-C Work Phone: [facility] 12-23-2024 13:45-0400 Respiratory rate 19 /min Laura Blue PA-C Work Phone: [facility] 12-23-2024 13:45-0400 SaO2% (BldA) [Mass fraction] 95 % Laura Blue PA-C Work Phone: [facility] 12-23-2024 13:45-0400 Systolic blood pressure 140 mm[Hg] Laura Blue PA-C Work Phone: [facility] 10-31-2023 11:44-0400 Body mass index (BMI) [Ratio] 32.9 kg/m2 Anthony Cotter LABORATORY ANIMAL CARETAKER.GLASS WORKER Work Phone: [facility] 10-31-2023 11:44-0400 Body temperature 98.6 [degF] Anthony Cotter LABORATORY ANIMAL CARETAKER.GLASS WORKER Work Phone: [facility] 10-31-2023 11:44-0400 Body weight 99.6 kg Anthony Cotter LABORATORY ANIMAL CARETAKER.GLASS WORKER Work Phone: [facility] 10-31-2023 11:44-0400 Diastolic blood pressure 102 mm[Hg] Anthony Cotter LABORATORY ANIMAL CARETAKER.GLASS WORKER Work Phone: [facility] 10-31-2023 11:44-0400 Heart rate 90 /min Anthony Cotter LABORATORY ANIMAL CARETAKER.GLASS WORKER Work Phone: [facility] 10-31-2023 11:44-0400 Respiratory rate 21 /min Anthony Cotter LABORATORY ANIMAL CARETAKER.GLASS WORKER Work Phone: [facility] 10-31-2023 11:44-0400 SaO2% (BldA) [Mass fraction] 98 % Anthony Cotter LABORATORY ANIMAL CARETAKER.GLASS WORKER Work Phone: [facility] 10-31-2023 11:44-0400 Systolic blood pressure 182 mm[Hg] Anthony King CHINTAN Work Phone: [facility] 06-21-2023 11:26-0500 Body temperature 98.01 [degF] Myrna Athy PA-C Work Phone: [facility] 06-21-2023 11:26-0500 Body weight 101.15 kg Myrna Athy PA-C Work Phone: [facility] 06-21-2023 11:26-0500 Diastolic blood pressure 118 mm[Hg] Myrna Athy PA-C Work Phone: [facility] 06-21-2023 11:26-0500 Heart rate 74 /min Myrna Athy PA-C Work Phone: [facility] 06-21-2023 11:26-0500 Respiratory rate 18 /min Myrna Athy PA-C Work Phone: [facility] 06-21-2023 11:26-0500 SaO2% (BldA) [Mass fraction] 98 % Myrna Athy PA-C Work Phone: [facility] 06-21-2023 11:26-0500 Systolic blood pressure 177 mm[Hg] Myrna Athy PA-C Work Phone: [facility] 12-21-2022 12:35-0400 Body temperature 97.8 [degF] [facility] 12-21-2022 12:35-0400 Diastolic blood pressure 105 mm[Hg] [facility] 12-21-2022 12:35-0400 Heart rate 79 /min [facility] 12-21-2022 12:35-0400 Respiratory rate 14 /min [facility] 12-21-2022 12:35-0400 SaO2% (BldA) [Mass fraction] 100 % [facility] 12-21-2022 12:35-0400 Systolic blood pressure 189 mm[Hg] [facility] 12-21-2022 11:50-0400 Body height 172.72 cm [facility] 12-21-2022 11:50-0400 Body mass index (BMI) [Ratio] 34.5 kg/m2 [facility] 12-21-2022 11:50-0400 Body weight 103.19 kg [facility] 09-20-2021 22:10-0400 Diastolic blood pressure 70 mm[Hg] [facility] Work Phone: 09-20-2021 22:10-0400 Heart rate 75 /min [facility] Work Phone: 09-20-2021 22:10-0400 Respiratory rate 17 /min [facility] Work Phone: 09-20-2021 22:10-0400 SaO2% (BldA) [Mass fraction] 96 % [facility] Work Phone: 09-20-2021 22:10-0400 Systolic blood pressure 125 mm[Hg] [facility] Work Phone: 09-20-2021 18:11-0400 Body height 172.72 cm [facility] Work Phone: 09-20-2021 18:11-0400 Body mass index (BMI) [Ratio] 34.8 kg/m2 [facility] Work Phone: 09-20-2021 18:11-0400 Body temperature 98 [degF] [facility] Work Phone: 09-20-2021 18:11-0400 Body weight 103.87 kg [facility] Work Phone: Encounters Encounter Date Encounter Type Care Provider Facility Start: 12-23-2024 End: 12-23-2024 Patient encounter procedure Laura Blue PA-C Work Phone: [facility] Comment on above: Bee sting reaction, accidental or unintentional, initial encounter (Primary Dx) Start: 12-23-2024 End: 12-23-2024 ambulatory LAURA BLUE Facility:[facility] Start: 07-15-2024 End: 07-15-2024 Emergency department patient visit No Primary Care Physician Facility:[facility] Start: 01-21-2024 End: 01-21-2024 Emergency department patient visit Brandin Duvall Facility:[facility] Start: 11-28-2023 ambulatory Elle Barahona [facility]: [facility] Start: 10-31-2023 End: 10-31-2023 Subsequent hospital visit by physician Xr [facility] Work Phone: Radiology Comment on above: Acute pain of right knee [M25.561] Start: 10-31-2023 End: 10-31-2023 Patient encounter procedure Anthony Cotter APRN.GLASS WORKER Work Phone: [facility] Comment on above: Acute pain of right knee (Primary Dx) Start: 06-22-2023 End: 06-22-2023 Patient encounter procedure Christian Fu DO Work Phone: [facility] Comment on above: Anterolisthesis of l umbar spine (Primary Dx); Pars defect of lumbar spine Start: 06-21-2023 End: 06-21-2023 Subsequent hospital visit by physician Xr [facility] Work Phone: Radiology Comment on above: Acute bilateral low back pain without sciatica [M54.50] Start: 06-21-2023 End: 06-21-2023 Patient encounter procedure Myrna Tobias PA-C Work Phone: [facility] Comment on above: Acute bilateral low back pain without sciatica (Primary Dx); Pars defect of lumbar spine; Hypertension, unspecified type Start: 12-21-2022 End: 12-21-2022 Emergency department patient visit [facility] Work Phone: Start: 09-20-2021 End: 09-20-2021 Emergency department patient visit [facility] Start: 10-23-2017 End: 10-23-2017 Emergency department patient visit JOHNATHAN ChristinaNicholas MCMULLEN Facility:B Procedures Date Procedure Procedure Detail Performing Clinician Start: 10-31-2023 Radiologic exam knee complete 4/more views Anthony Cotter APRN.GLASS WORKER Work Phone: Start: 06-21-2023 Radex spine lumbosac ral 2/3 views Myrna Tobias PA-C Work Phone: Start: 09-20-2021 Plain chest X-ray Start: 11-22-2012 Lipid 1996 panel - S judith or Plasma Myrna Tobias PA-C Work Phone: Plan of Treatment Date Care Activity Detail Author Start: 05-05-2028 Urine microalbumin profile DTaP,Tdap,Td Vaccine (2 - Td or Tdap) [facility] Start: 01-14-2025 Influenza vaccination Influenza Vacc ine (#1) [facility] Start: 03-13-2024 End: 03-13-2024 Patient encounter procedure 03/13/2024 1:00 PM EDT Office Visit [facility] [address] [place], [place] [id number] PodlogarDana APRN.GLASS WORKER [address] [place], [place] [id number] est care [facility] Comment on above: est care Start: 01-15-2024 Covid-19 Vaccine ( season) Covid-19 Vaccine ( season) [facility] Start: 01-15-2024 Influenza vaccination [facility] Start: 09-29-2023 Prostate specific antigen measurement Prostate Cancer Screening Discussion [facility] Start: 05-16-2023 Behavioral Health Screening Behavioral Health Screening [facility] Start: 05-16-2023 Depression Assessment Depression Ass essment [facility] Start: 01-14-2023 Covid-19 Vaccine ( season) Covid-19 Vaccine ( season) [facility] Start: 01-14-2023 Influenza vaccination Influenza Vacc ine (#1) [facility] Start: 2018 Shingrix Vaccine (1 of 2) Shingrix Vaccine (1 of 2) [facility] Start: 11-22-2017 Lipid panel Lipid Screening [facility] Start: 11-23-2015 Diabetes Screening Diabetes Screenin g [facility] Start: 2013 Prostate specific antigen measurement Prostate Cancer Screening Discussion [facility] Start: 2013 Screening for malign ant neoplasm of colon [facility] Start: 09-29-1987 Hepatitis B Vaccine (1 of 3 - 19+ 3-dose series) Hepatitis B Vaccine (1 of 3 - 19+ 3-dose series) [facility] Start: 09-29-1987 Pneumococcal Vaccine : 50+ (1 of 2 - PCV) Pneumococcal Vaccine: 50+ (1 of 2 - PCV) [facility] Start: 1986 Anxiety Screening Anxiety Screening [facility] Start: 1986 Depression Screening Depression Scre ening [facility] Start: 1986 Hepatitis C screening Hepatitis C Sc reening [facility] Start: 1986 HIV screening HIV Screening [facility] Start: 1974 Pneumococcal vaccination Pneum ococcal Vaccine (1 of 2 - PCV) [facility] Start: 1968 Hepatitis B Vaccine (1 of 3 - 3-dose series) Hepatitis B Vaccine (1 of 3 - 3-dose series) [facility] Patient Education [facility] Work Phone: Patient referral [facility] Work Phone[facility] Immun[facility] Immunization Date Immunization Notes Care Provider Best smith 05-05-2018 tetanus toxoid, redu bhupinder diphtheria toxoid, and acellular pertussis vaccine, adsorbed [facility] 03-21-2013 tetanus and diphther ia toxoids, adsorbed, preservative free, for adult use (2 Lf of tetanus toxoid and 2 Lf of diphtheria toxoid) [facility] Payers Date Payer Category Payer Private Health Insurance MMO SU[employer] PPO [id number] 2023 Unknown MMO MMO [employer] PPO [id number] 2023-Present [phone] [address] [place] [address] PPO [id number] 2023 Unknown [id number] 2022 Medicaid [id number] 2017 Self-pay Unknown [id number] Unknown [id number] Unknown [id number] Unknown [id number] Social History Date Type Detail Facility Start: 09-20-2021 End: 12-21-2022 Tobacco smoking status GAIS Unknown if ever smoked [facility] Start: 06-23-2020 None [facility] Start: 06-23-2020 With Family [facility] Start: 1970 Sex Assigned At Male [facility] Start: 06-21-2023 [facility] History of tobacco use Cigarette Smoker [facility] Start: 06-21-2023 End: 06-22-2023 Cigarettes smoked current (pack per day) - Reported 1 [facility] Start: 06-21-2023 Tobacco use and exposure Former smokeless tobacco user [facility] Start: 06-21-2023 End: 10-31-2023 Alcohol intake Current drinker of alcohol (finding) [facility] Start: 06-21-2023 End: 06-22-2023 Tobacco use panel [facility] Start: 04-16-2012 National Score (1-10 0), lower number is lower risk Not on file [facility] Start: 06-21-2023 Tobacco Comment 11/27/12 - Smok ing 3/4 pack daily [facility] Start: 12-07-2012 Alcohol Comment 8 beers daily [facility] Start: 1970 Sex Assigned At Not on file [facility] Functional Status Date Assessment Result Facility 11-24-2014 Are you deaf, or do you have serious difficulty hearing No 11/24/2014 2:01 PM EDT Day Ragland LPN No [facility] 11-24-2014 Are you blind, or do you have serious difficulty seeing, even when wearing glasses No 11/24/2014 2:01 PM EDT Day Ragland LPN No [facility] 11-24-2014 Do you have serious difficulty walking or climbing stairs No 11/24/2014 2:01 PM EDT Day Ragland LPN No [facility] 11-24-2014 Do you have difficul ty dressing or bathing No 11/24/2014 2:01 PM EDDay Silva LPN No [facility] 11-24-2014 Because of a physica l, mental, or emotional condition, do you have difficulty doing errands alone such as visiting a physician's office or shopping No 11/24/2014 2:01 PM EDT Day Ragland LPN No [facility] Mental Status Date Assessment Result Facility 12-21-2022 Cognitive function Level Of Cons ciousness Awake;Alert;Appropriate;Fol lows Commands [facility] Work Phone: 09-20-2021 Cognitive function Voice/Name [facility] Work Phone: 11-24-2014 Because of a physica l, mental, or emotional condition, do you have serious difficulty concentrating, remembering, or making decisions No 11/24/2014 2:01 PM EDT Day Ragland LPN No [facility] Clinical Notes 12-21-2022 to 12-23-2024 Patient InstructionsLaura Blue PA-C - 12/23/2024 1:49 PM EDTNydia Crawley, RT(R) - 10/31/2023 12:00 PM Anthony Burnett APRN.GLASS WORKER - 10/31/2023 11:59 AM EDT Note Date & Type Note Facility 12-23-2024 Instructions Laura Blue PA-C - 12/23/2024 1:58 PM EDT We discussed your bee sting and related symptoms: - You have a localized reaction to the bee sting, which has caused swelling, pain, and irritation in your neck and shoulder area. - Start taking Prednisone 40 mg once daily for 5 days to reduce swelling and inflammation. - Take Pepcid 20 mg twice daily for 7 days. This medication has antihistamine properties that can help with your symptoms. - Take Zyrtec or Claritin once daily for 7 days as an alternative to Benadryl. These antihistamines will help with swelling and inflammation without causing drowsiness. - Continue monitoring the affected areas. If they become more red, start draining, or if your symptoms worsen, please contact our office as you may need an antibiotic. Please follow the medication instructions provided and let us know if you have any concerns or if your symptoms do not improve. documented in this encounter [facility] 12-23-2024 Note HNO ID: [id number] Author: LAURA BLUE PA-C Service: ? Author Type: Physician Clothespin Machine Operator Type: Progress Notes Filed: 12/23/2024 14:02 Note Text: [facility] NOTE No primary care provider on file. No primary provider on file. Jacky Brewer is a 54-year-old male presenting with neck and shoulder pain and swelling following a bee sting. Jacky was stung by a bee yesterday at approximately 0930, with the stinger remaining embedded for approximately 6 hours before removal. He reports subsequent swelling and pain in the neck and shoulder, which has progressively worsened since the incident. He applied Biofreeze topically and took Benadryl orally for symptom relief. He denies dyspnea or sensation of internal neck swelling. He reports feeling unwell this morning and notes that he did not snore last night, which is unusual for him. Denies shortness of breath. No sensation of tongue or throat swelling. CURRENT MEDICATIONS[1] PAST MEDICAL HISTORY[2] PAST SURGICAL HISTORY Procedure Laterality Date PAST SURGICAL HISTORY OF 1988 right wrist tendon repair post laceration with glass PAST SURGICAL HISTORY OF foreign body removal per self right knee with repair SOCIAL HISTORY[3] Physical Exam: BP 140/96 Pulse 82 Temp 36.5 ?C (97.7 ?F) Resp 19 Wt 100.4 kg (221 lb 5.5 oz) SpO2 95% BMI 33.17 kg/m? General appearance: Well appearing, alert, in no acute distress, well-hydrated, well nourished. Skin: swelling and erythema to right upper back, neck. Swelling to right side of nasal bridge Eyes: Anicteric sclera. Pupils are equally round and reactive to light. Extraocular movements are intact. Neck: supple, no lymphadenopathy noted. Lungs: Lungs clear to auscultation. No wheezing, rhonchi, rales. Unlabored on room air Heart: RRR without murmur, gallop, or rubs. No ectopy Assessment/Plan: 1. Bee sting reaction, accidental or unintentional, initial encounter (T63.441A) Localized swelling and pain in the neck and shoulder following a bee sting. No signs of infection observed. Stinger was embedded for approximately 6 hours before removal. - Initiated Prednisone 40 mg orally once daily for 5 days to reduce inflammation and pain. - Prescribed Pepcid 40 mg orally twice daily for 7 days for its antihistamine properties. - Advised continuation of antihistamines; recommended Zyrtec or Claritin once daily for 7 days as alternatives to Benadryl to avoid sedation. - Instructed to monitor for increased redness or drainage, which may indicate infection and necessitate antibiotic therapy. Recording using Afraxis software for draft documentation of the visit was discussed with the patient/authorized unit support representative; all questions welcomed and answered. Patient/authorized unit support representative agreed to proceed. Laura Blue MPAS, PA-C MDM [1] Current Outpatient Medications Medication Sig lidocaine (LIDODERM) 5 % Apply 1 Patch as directed every 12 hours. Remove old patch prior to placing new patch. Location: right knee (Patient not taking: Reported on 12/23/2024) diclofenac (VOLTAREN ARTHRITIS PAIN) 1 % topical gel Apply 2 g to affected area four times daily. (Patient not taking: Reported on 12/23/2024) Valsartan-hydroCHLOROthiazide 80-12.5 mg per tablet DAILY (Patient not taking: Reported on 06/21/2023) cyclobenzaprine (FLEXERIL) 10 mg tablet Take 1 tablet by mouth three times a day as needed for muscle spasm. (Patient not taking: Reported on 10/31/2023) albuterol (PROVENTIL) 5 mg/mL nebu Inhale 0.5 mL as instructed one time only for 1 dose. 1 DOSE NOW - BACK OFFICE. PLACE 0.5 ML PER DROPPER AND 2.5 ML OF NORMAL SALINE INTO RESERVOIR. (Patient not taking: Reported on 12/23/2024) predniSONE (DELTASONE) 20 mg tablet Prednisone 40 mg (2-20mg tablets) po QD for 5 days (Patient not taking: Reported on 10/31/2023) albuterol HFA (PROAIR HFA) 90 mcg/actuation inhaler Inhale 2 Puffs as instructed every 4 hours as needed. (Patient not taking: Reported on 07/05/2019) Irsitrusvefrfeo-Jminxkghe-XO (BROMFED DM) 2-30-10 mg/5 mL syrup Take 5-10 ml po q6h prn (Patient not taking: Reported on 07/05/2019) naproxen (NAPROSYN) 500 mg tablet Take 1 tablet by mouth twice daily as needed (for pain/inflammation). Take with food. (Patient not taking: Reported on 10/31/2023) No current facility-administered medications for this visit. [2] Past Medical History: No date: Back pain No date: Cataracts, bilateral No date: Hypertension No date: Seasonal allergies [3] Social History Tobacco Use Smoking status: Every Day Current packs/day: 1.00 Average packs/day: 1 pack/day for 15.0 years (15.0 ttl pk-yrs) Types: Cigarettes Smokeless tobacco: Former Tobacco comments: 11/27/12 - Smoking 3/4 pack daily Vaping Use Vaping status: Never Used Substance Use Topics Alcohol use: Yes Comment: 8 beers daily Drug use: No [facility] 12-23-2024 History of Presen t illness Narrative Images from the original note were not included. [facility] NOTE No primary care provider on file. No primary provider on file. Jacky Brewer is a 54-year-old male presenting with neck and shoulder pain and swelling following a bee sting. Jacky was stung by a bee yesterday at approximately 0930, with the stinger remaining embedded for approximately 6 hours before removal. He reports subsequent swelling and pain in the neck and shoulder, which has progressively worsened since the incident. He applied Biofreeze topically and took Benadryl orally for symptom relief. He denies dyspnea or sensation of internal neck swelling. He reports feeling unwell this morning and notes that he did not snore last night, which is unusual for him. Denies shortness of breath. No sensation of tongue or throat swelling. CURRENT MEDICATIONS[1] PAST MEDICAL HISTORY[2] PAST SURGICAL HISTORY Procedure Laterality Date PAST SURGICAL HISTORY OF 1988 right wrist tendon repair post laceration with glass PAST SURGICAL HISTORY OF foreign body removal per self right knee with repair SOCIAL HISTORY[3] Physical Exam: BP 140/96 Pulse 82 Temp 36.5 C (97.7 F) Resp 19 Wt 100.4 kg (221 lb 5.5 oz) SpO2 95% BMI 33.17 kg/m General appearance: Well appearing, alert, in no acute distress, well-hydrated, well nourished. Skin: swelling and erythema to right upper back, neck. Swelling to right side of nasal bridge Eyes: Anicteric sclera. Pupils are equally round and reactive to light. Extraocular movements are intact. Neck: supple, no lymphadenopathy noted. Lungs: Lungs clear to auscultation. No wheezing, rhonchi, rales. Unlabored on room air Heart: RRR without murmur, gallop, or rubs. No ectopy Assessment/Plan: 1. Bee sting reaction, accidental or unintentional, initial encounter (T63.441A) Localized swelling and pain in the neck and shoulder following a bee sting. No signs of infection observed. Stinger was embedded for approximately 6 hours before removal. - Initiated Prednisone 40 mg orally once daily for 5 days to reduce inflammation and pain. - Prescribed Pepcid 40 mg orally twice daily for 7 days for its antihistamine properties. - Advised continuation of antihistamines; recommended Zyrtec or Claritin once daily for 7 days as alternatives to Benadryl to avoid sedation. - Instructed to monitor for increased redness or drainage, which may indicate infection and necessitate antibiotic therapy. Recording using Afraxis software for draft documentation of the visit was discussed with the patient/authorized unit support representative; all questions welcomed and answered. Patient/authorized unit support representative agreed to proceed. SARKIS Salas, ESHA MDM [1] Current Outpatient Medications Medication Sig lidocaine (LIDODERM) 5 % Apply 1 Patch as directed every 12 hours. Remove old patch prior to placing new patch. Location: right knee (Patient not taking: Reported on 12/23/2024) diclofenac (VOLTAREN ARTHRITIS PAIN) 1 % topical gel Apply 2 g to affected area four times daily. (Patient not taking: Reported on 12/23/2024) Valsartan-hydroCHLOROthiazide 80-12.5 mg per tablet DAILY (Patient not taking: Reported on 06/21/2023) cyclobenzaprine (FLEXERIL) 10 mg tablet Take 1 tablet by mouth three times a day as needed for muscle spasm. (Patient not taking: Reported on 10/31/2023) albuterol (PROVENTIL) 5 mg/mL nebu Inhale 0.5 mL as instructed one time only for 1 dose. 1 DOSE NOW - BACK OFFICE. PLACE 0.5 ML PER DROPPER AND 2.5 ML OF NORMAL SALINE INTO RESERVOIR. (Patient not taking: Reported on 12/23/2024) predniSONE (DELTASONE) 20 mg tablet Prednisone 40 mg (2-20mg tablets) po QD for 5 days (Patient not taking: Reported on 10/31/2023) albuterol HFA (PROAIR HFA) 90 mcg/actuation inhaler Inhale 2 Puffs as instructed every 4 hours as needed. (Patient not taking: Reported on 07/05/2019) Hksqeaezgfsdmow-Ifuudgkfr-JZ (BROMFED DM) 2-30-10 mg/5 mL syrup Take 5-10 ml po q6h prn (Patient not taking: Reported on 07/05/2019) naproxen (NAPROSYN) 500 mg tablet Take 1 tablet by mouth twice daily as needed (for pain/inflammation). Take with food. (Patient not taking: Reported on 10/31/2023) No current facility-administered medications for this visit. [2] Past Medical History: No date: Back pain No date: Cataracts, bilateral No date: Hypertension No date: Seasonal allergies [3] Social History Tobacco Use Smoking status: Every Day Current packs/day: 1.00 Average packs/day: 1 pack/day for 15.0 years (15.0 ttl pk-yrs) Types: Cigarettes Smokeless tobacco: Former Tobacco comments: 11/27/12 - Smoking 3/4 pack daily Vaping Use Vaping status: Never Used Substance Use Topics Alcohol use: Yes Comment: 8 beers daily Drug use: No documented in this encounter [facility] 10-31-2023 History of Presen t illness Narrative Radiology Service Progress Note PATIENT NAME: Jacky Brewer DATE OF SERVICE: October 31, 2023 TIME: 12:06 PM PATIENT IDENTITY VERIFICATION COMPLETED USING TWO (2) IDENTIFIERS: Name and Date of confirmed by patient verbally. FALL SCREENING: Has the patient had 2 falls in the last year or 1 fall with injury or currently using an Ambulatory Assistive Device (Walker, Cane, Wheelchair, Crutches, etc.)? No PATIENT GENDER DATA: Male PATIENT RELEVANT IMPLANT DATA REVIEWED: Not Applicable PATIENT PRESENTS WITH AN IMPLANTABLE OR ATTACHED APPRENTICE PAINTER NECKTIES: No RADIOLOGY DEPARTMENT: General X-ray: Exam(s) Completed: Lower Extremity X-Ray(s): Knee, AP / Lat / Tunne / Merchant Right and Wt. Bearing PERIPHERAL IV DATA: Not applicable SIGNED BY: RT Lupe(R) October 31, 2023 12:06 PM documented in this encounter [facility] 10-31-2023 History of Presen t illness Narrative Images from the original note were not included. Subjective HPI HPI Jacky Brewer is a 53 year old male who presents today for CC of right knee pain. This started 1 day ago. Has tried otc medication for relief. Symptoms are worsened by nothing. Risk factors nothing hx of surgery to right knee. Denies injury, numbness/tingling of right lower extremity. .Patient presents with: Edema: Right leg swelling, sore started last night PAST MEDICAL HISTORY Diagnosis Date Back pain Cataracts, bilateral Hypertension Seasonal allergies PAST SURGICAL HISTORY Procedure Laterality Date PAST SURGICAL HISTORY OF 1988 right wrist tendon repair post laceration with glass PAST SURGICAL HISTORY OF foreign body removal per self right knee with repair ALLERGIES Patient has no known allergies. MEDICATIONS Valsartan-hydroCHLOROthiazide 80-12.5 mg per tablet DAILY (Patient not taking: Reported on 06/21/2023) cyclobenzaprine (FLEXERIL) 10 mg tablet Take 1 tablet by mouth three times a day as needed for muscle spasm. (Patient not taking: Reported on 10/31/2023) albuterol (PROVENTIL) 5 mg/mL nebu Inhale 0.5 mL as instructed one time only for 1 dose. 1 DOSE NOW - BACK OFFICE. PLACE 0.5 ML PER DROPPER AND 2.5 ML OF NORMAL SALINE INTO RESERVOIR. predniSONE (DELTASONE) 20 mg tablet Prednisone 40 mg (2-20mg tablets) po QD for 5 days (Patient not taking: Reported on 10/31/2023) albuterol HFA (PROAIR HFA) 90 mcg/actuation inhaler Inhale 2 Puffs as instructed every 4 hours as needed. (Patient not taking: Reported on 07/05/2019) Faobohfqwpekhfa-Xjzootslb-NS (BROMFED DM) 2-30-10 mg/5 mL syrup Take 5-10 ml po q6h prn (Patient not taking: Reported on 07/05/2019) naproxen (NAPROSYN) 500 mg tablet Take 1 tablet by mouth twice daily as needed (for pain/inflammation). Take with food. (Patient not taking: Reported on 10/31/2023) FAMILY HISTORY Problem Relation Age of Onset None Mother unknown Heart Father Diabetes Father Coronary Artery Disease Father Cancer Father Diabetes Sister Alcohol/Drug Sister Alcohol/Drug Brother Social History Tobacco Use Smoking status: Every Day Packs/day: 1.00 Years: 15.00 Additional pack years: 0.00 Total pack years: 15.00 Types: Cigarettes Smokeless tobacco: Former Tobacco comments: 11/27/12 - Smoking 3/4 pack daily Vaping Use Vaping Use: Never used Substance Use Topics Alcohol use: Yes Comment: 8 beers daily Drug use: No ROS Objective Blood pressure 182/102, pulse 90, temperature 37 C (98.6 F), resp. rate 21, weight 99.6 kg (219 lb 9.3 oz), SpO2 98%. Physical Exam Constitutional: General: He is not in acute distress. Appearance: He is not toxic-appearing or diaphoretic. HENT: Head: Normocephalic and atraumatic. Pulmonary: Effort: Pulmonary effort is normal. No accessory muscle usage or respiratory distress. Musculoskeletal: Legs: Neurological: Mental Status: He is alert and oriented to person, place, and time. ASSESSMENT/PLAN: 1. Acute pain of right knee - ICD9: 719.46, ICD10: M25.561 -no bony abnormality noted on xray -Rest, Ice, Compression, Elevation discussed -discussed use of ibuprofen -follow up with primary care if symptoms persist/worsen in 10-14 days - XR KNEE GENERAL 4V AP BOTH/PA BOTH/LAT/MERC RIGHT IMPRESSION: No acute osseous abnormality Dictated by : DANETTE NATION MD - LIDOCAINE 5 % TOPICAL PATCH - DICLOFENAC 1 % TOPICAL GEL BP very high, hx of htn. Advised to see pcp krystyna. Anthony Cotter APRN.GLASS WORKER documented in this encounter [facility] 06-22-2023 History of Presen t illness Narrative SERVICE DATE: June 22, 2023 PCP: No primary care provider on file. Subjective Patient ID: Jacky is a 52 year old male. Chief Complaint: Patient presents with: Pars defect lumbar spine PAIN EVALUATION 06/22/2023 1527 Pain Level: 7 Pain Location: Back-Lower Description: Dull Duration Amount of Time: 4 Duration Units: Days Frequency: Continuous Intervention/Comfort measure: Medication HPI 52-year-old male with history of intermittent low back pain. He states that he has had several episodes of back pain flareup over the past years. Recently was just a few days ago. He was evaluated in express care with abnormal findings on x-ray and referred here for further evaluation. TREATMENTS PRIOR TO INITIAL CONSULT: Review of Systems ACTIVE PROBLEM LIST Tear of Right Meniscus As Current Injury Pseudogout of Knee Back Ache PAST MEDICAL HISTORY Diagnosis Date Back pain Cataracts, bilateral Hypertension Seasonal allergies PAST SURGICAL HISTORY Procedure Laterality Date PAST SURGICAL HISTORY OF 1988 right wrist tendon repair post laceration with glass PAST SURGICAL HISTORY OF foreign body removal per self right knee with repair FAMILY HISTORY Problem Relation Age of Onset None Mother unknown Heart Father Diabetes Father Coronary Artery Disease Father Cancer Father Diabetes Sister Alcohol/Drug Sister Alcohol/Drug Brother Social History Tobacco Use Smoking status: Every Day Packs/day: 1.00 Years: 15.00 Additional pack years: 0.00 Total pack years: 15.00 Types: Cigarettes Smokeless tobacco: Former Tobacco comments: 11/27/12 - Smoking 3/4 pack daily Vaping Use Vaping Use: Never used Substance Use Topics Alcohol use: Yes Comment: 8 beers daily Drug use: No ALLERGIES No Known Allergies MEDICATIONS: Valsartan-hydroCHLOROthiazide 80-12.5 mg per tablet DAILY (Patient not taking: Reported on 06/21/2023) predniSONE (DELTASONE) 20 mg tablet Take 2 tablets by mouth once daily for 5 days. cyclobenzaprine (FLEXERIL) 10 mg tablet Take 1 tablet by mouth three times a day as needed for muscle spasm. albuterol (PROVENTIL) 5 mg/mL nebu Inhale 0.5 mL as instructed one time only for 1 dose. 1 DOSE NOW - BACK OFFICE. PLACE 0.5 ML PER DROPPER AND 2.5 ML OF NORMAL SALINE INTO RESERVOIR. predniSONE (DELTASONE) 20 mg tablet Prednisone 40 mg (2-20mg tablets) po QD for 5 days (Patient not taking: Reported on 07/05/2019 ) albuterol HFA (PROAIR HFA) 90 mcg/actuation inhaler Inhale 2 Puffs as instructed every 4 hours as needed. (Patient not taking: Reported on 07/05/2019 ) Eavggcpyljyiusy-Yfvvynzco-HQ (BROMFED DM) 2-30-10 mg/5 mL syrup Take 5-10 ml po q6h prn (Patient not taking: Reported on 07/05/2019 ) naproxen (NAPROSYN) 500 mg tablet Take 1 tablet by mouth twice daily as needed (for pain/inflammation). Take with food. Allergies, medications, past surgical history, family history and past medical history were reviewed per this encounter. Objective Ortho Exam 52-year-old male, alert, pleasant, no acute distress. External examination shows restriction with extension and flexion of the lumbar spine. Stork test is positive right greater than left. No focal sensory neural deficits in the extremities noted. Leg raise is negative bilaterally. Straight lumbar spine shows degenerative changes with pars defect at L5 and grade 1 anterolisthesis L5 on S1 Assessment/Plan ASSESSMENT Diagnosis (M43.06) Pars defect of lumbar spine Plan: CONSULT TO ORTHOPAEDICS Office Visit on 06/22/23 CONSULT TO ORTHOPAEDICS PLAN Discussed core strengthening exercises with handouts given Reviewed triggering factors as well as other activities to avoid. Reviewed red flags to watch for including distant numbness or weakness in the lower extremities, loss of bowel or bladder function. FOLLOW-UP: No follow-ups on file. 1 week if no improvement SIGNATURE: Christian Fu DO PATIENT NAME: Jacky Brewer DATE: June 22, 2023 TIME: 4:07 PM AMB ROOMING INTAKE FLOWSHEET DATA Pain Pain Level: 7 Pain Location: Back-Lower Description: Dull Duration Amount of Time: 4 Duration Units: Days Frequency: Continuous Intervention/Comfort measure: Medication documented in this encounter [facility] 06-21-2023 History of Presen t illness Narrative This note was created using Photow[employer]. Subjective Jacky Brewer is a 52 year old male. HPI Presents with lower back pain over the past 3 days. He states he was in his garage cleaning up some things when he felt pain in his lower back. He denies any pain radiating to his legs. No numbness or weakness. No loss of bowel or bladder control. He states that hurts more to stand up straight and when attempting to sit down. He states he had a bout of back pain 6 or 7 years ago but really does not have chronic issues. No abdominal pain. No urinary complaints. He did take 400 mg of ibuprofen twice yesterday without relief. The patient's blood pressure is also noted to be elevated. He had been on lisinopril in 2019 but had lost his insurance and not followed up. In December 2022 he was seen in the ER and placed on blood pressure medicine but had not followed up after that. He is not having any headache, chest pain, blurred vision, peripheral edema. Review of Systems Constitutional: Negative. HENT: Negative. Eyes: Negative. Respiratory: Negative. Cardiovascular: Negative. Gastrointestinal: Negative. Genitourinary: Negative. Musculoskeletal: Positive for back pain. All other systems reviewed and are negative. PAST MEDICAL HISTORY Diagnosis Date Back pain Cataracts, bilateral Hypertension Seasonal allergies Current Outpatient Medications Medication Sig Dispense Refill Valsartan-hydroCHLOROthiazide 80-12.5 mg per tablet DAILY (Patient not taking: Reported on 06/21/2023) predniSONE (DELTASONE) 20 mg tablet Take 2 tablets by mouth once daily for 5 days. 10 tablet 0 cyclobenzaprine (FLEXERIL) 10 mg tablet Take 1 tablet by mouth three times a day as needed for muscle spasm. 12 tablet 0 albuterol (PROVENTIL) 5 mg/mL nebu Inhale 0.5 mL as instructed one time only for 1 dose. 1 DOSE NOW - BACK OFFICE. PLACE 0.5 ML PER DROPPER AND 2.5 ML OF NORMAL SALINE INTO RESERVOIR. 1 mL 0 predniSONE (DELTASONE) 20 mg tablet Prednisone 40 mg (2-20mg tablets) po QD for 5 days (Patient not taking: Reported on 07/05/2019 ) 10 tablet 0 albuterol HFA (PROAIR HFA) 90 mcg/actuation inhaler Inhale 2 Puffs as instructed every 4 hours as needed. (Patient not taking: Reported on 07/05/2019 ) 1 Inhaler 0 Uflgzqfugfnnhql-Kjnntxxkf-TZ (BROMFED DM) 2-30-10 mg/5 mL syrup Take 5-10 ml po q6h prn (Patient not taking: Reported on 07/05/2019 ) 120 mL 0 naproxen (NAPROSYN) 500 mg tablet Take 1 tablet by mouth twice daily as needed (for pain/inflammation). Take with food. 60 tablet 0 No current facility-administered medications for this visit. PAST SURGICAL HISTORY Procedure Laterality Date PAST SURGICAL HISTORY OF 1988 right wrist tendon repair post laceration with glass PAST SURGICAL HISTORY OF foreign body removal per self right knee with repair FAMILY HISTORY Problem Relation Age of Onset None Mother unknown Heart Father Diabetes Father Coronary Artery Disease Father Cancer Father Diabetes Sister Alcohol/Drug Sister Alcohol/Drug Brother Social History Tobacco Use Smoking status: Every Day Packs/day: 1.00 Years: 15.00 Additional pack years: 0.00 Total pack years: 15.00 Types: Cigarettes Smokeless tobacco: Former Tobacco comments: 11/27/12 - Smoking 3/4 pack daily Vaping Use Vaping Use: Never used Substance Use Topics Alcohol use: Yes Comment: 8 beers daily Drug use: No Objective BP 177/118 Pulse 74 Temp 36.7 C (98 F) Resp 18 Wt 101.2 kg (223 lb) SpO2 98% BMI 33.41 kg/m Physical Exam Vitals reviewed. Constitutional: Appearance: Normal appearance. HENT: Head: Normocephalic and atraumatic. Musculoskeletal: Comments: No tenderness to palpation to the lumbar back. He does have some paraspinal muscle spasm noted. Increased pain with bending and twisting. Normal strength and sensation in lower extremities. Able to ambulate. Able to go up on his toes and back on his heels. DTRs intact and symmetrical bilaterally. Skin: General: Skin is warm and dry. Neurological: Mental Status: He is alert. Assessment and Plan ASSESSMENT/PLAN: 1. Acute bilateral low back pain without sciatica - ICD9: 724.2, 338.19, ICD10: M54.50 (primary diagnosis) - XR LUMBAR GENERAL 3V AP/LAT/L5-S1 - KETOROLAC 30 MG/ML (1 ML) INJECTION SOLUTION 2. Pars defect of lumbar spine - ICD9: 738.4, ICD10: M43.06 X-rays show a pars defect with anterolisthesis of L5 on S1. I did call and make the patient aware of this. He will hold off on the prednisone until he sees orthopedics tomorrow. Recommended NSAIDs and could use the muscle relaxer. Discussed rest, ice, and follow-up tomorrow. - CONSULT TO ORTHOPAEDICS 3. Hypertension, unspecified type - ICD9: 401.9, ICD10: I10 Patient has been noncompliant on medication due to losing insurance. I did give him a establishing appointment with PCP in [place] for July 05. Myrna Tobias PA-C documented in this encounter [facility] 06-21-2023 History of Presen t illness Narrative Radiology Service Progress Note PATIENT NAME: Jacky Brewer DATE OF SERVICE: June 21, 2023 TIME: 11:46 AM PATIENT IDENTITY VERIFICATION COMPLETED USING TWO (2) IDENTIFIERS: Name and Date of confirmed by patient verbally. FALL SCREENING: Has the patient had 2 falls in the last year or 1 fall with injury or currently using an Ambulatory Assistive Device (Walker, Cane, Wheelchair, Crutches, etc.)? No PATIENT GENDER DATA: Male PATIENT RELEVANT IMPLANT DATA REVIEWED: Yes PATIENT PRESENTS WITH AN IMPLANTABLE OR ATTACHED APPRENTICE PAINTER NECKTIES: No RADIOLOGY DEPARTMENT: General X-ray: Exam(s) Completed: Spine X-Ray(s): Lumbar AP / LAT / L5-S1 PERIPHERAL IV DATA: Not applicable SIGNED BY: RT Pablo(R) June 21, 2023 11:46 AM documented in this encounter [facility] 12-21-2022 Hospital Discharg e instructions Additional Instructions Take medication as prescribed keep a log of your blood pressure in the morning when you wake up and at night before bed. Follow-up as an outpatient for blood pressure recheck and adjustments of medications as needed. [facility] Work Phone: Evaluation note No assessment inform ation available [facility] Work Phone: Evaluation note Diagnosis Acute bilateral low back pain without sciatica- Primary Pars defect of lumbar spine Acquired spondylolisthesis Hypertension, unspecified type [facility] Diagnosis Anterolisthesis of lumbar spine- Primary Pars defect of lumbar spine Acquired spondylolisthesis [facility] Diagnosis Acute pain of right knee- Primary [facility] Diagnosis Back ache- Primary Backache, unspecified Acute bilateral low back pain without sciatica [facility] Diagnosis Back ache- Primary Backache, unspecified Bee sting reaction, accidental or unintentional, initial encounter- Primary documented in this encounter [facility] for referral (narrative)* Diagnostic Procedure Only (Urgent) - Closed Specialty Diagnoses / Procedures Referred By Mumtaz t Referred To Contact XR IMAGING Diagnoses Acute pain of right knee Procedures XR KNEE GENERAL 4V AP BOTH/PA BOTH/LAT/MERC RIGHT RADIOLOGIC EXAM KNEE COMPLETE 4/MORE VIEWS Anthony Cotter APRN.[employer] WORK[employer] [address] [place] [address] [place] [address] Referral ID Status Reason Start Date Expiration Date V isits Requested Visits Authorized [id number] Closed Auto-Generate d Referral 10/31/2023 11/29/2024 1 1 [facility] for referral (narrative)* Diagnostic Procedure Only (Urgent) - Closed Specialty Diagnoses / Procedures Referred By Contac t Referred To Contact XR IMAGING Diagnoses Acute bilateral low back pain without sciatica Procedures XR LUMBAR GENERAL 3V AP/LAT/L5-S1 RADEX SPINE LUMBOSACRAL 2/3 VIEWS Myrna Tobias PA-C [address] [place] [address] [place] [address] Referral ID Status Reason Start Date Expiration Date V isits Requested Visits Authorized [id number] Closed Auto-Generate d Referral 06/21/2023 07/20/2024 1 1 [facility] for visit Narrative* Diagnostic Procedure Only (Urgent) - Closed Specialty Diagnoses / Procedures Referred By Contac t Referred To Contact XR IMAGING Diagnoses Acute pain of right knee Procedures XR KNEE GENERAL 4V AP BOTH/PA BOTH/LAT/MERC RIGHT RADIOLOGIC EXAM KNEE COMPLETE 4/MORE VIEWS Anthony Cotter APRN.CNP [address] [place] [address] [place] [address] Referral ID Status Reason Start Date Expiration Date V isits Requested Visits Authorized [id number] Closed Auto-Generate d Referral 10/31/2023 11/29/2024 1 1 [facility] for visit Narrative* Diagnostic Procedure Only (Urgent) - Closed Specialty Diagnoses / Procedures Referred By Contac t Referred To Contact XR IMAGING Diagnoses Acute bilateral low back pain without sciatica Procedures XR LUMBAR GENERAL 3V AP/LAT/L5-S1 RADEX SPINE LUMBOSACRAL 2/3 VIEWS Myrna Tobias PA-C [address] [place] [address] [place] [address] Referral ID Status Reason Start Date Expiration Date V isits Requested Visits Authorized [id number] Closed Auto-Generate d Referral 06/21/2023 07/20/2024 1 1 [facility] Summary Purpose Family History No Family History Records Found Relationship Condition Age at Onset Recorded Date/T goyo Not Specified Epilepsy Unknown Diabetes mellitus Unknown Hypertension Unknown Advance Directives No Advanced Directives Records Found Advance Directive Response Recorded Date/ Time Living Will No September 20, 2021 6: 39pm Power of Asphalt Distributor Tender No September 20, 2021 6:39pm Advance Directive Response Recorded Date/ Time Living Will No December 21, 2022 11:49am Power of Asphalt Distributor Tender No December 21 11:49am Chief Complaint and Reason for Visit Chief Complaint cp Chief Complaint htn Reason for Referral Specialty Diagnoses / Procedures Referred By Contac t Referred To Contact Orthopedics Diagnoses Pars defect of lumbar spine Procedures CONSULT TO ORTHOPAEDICS OFFICE[facility]UTES Myrna Tobias PA-C [address] [place] [address] Referral ID Status Reason Start Date Expiration Date Visits Requested Visits Authorized [id number] Authorized PCP Requested Referral 06/21/2023 06/20/2024 1 1 Specialty Diagnoses / Procedures Referred By Contac t Referred To Contact XR IMAGING Diagnoses Acute bilateral low back pain without sciatica Procedures XR LUMBAR GENERAL 3V AP/LAT/L5-S1 RADEX SPINE LUMBOSACRAL 2/3 VIEWS Myrna Tobias PA-C [address] [place] [address] [place] [address] Referral ID Status Reason Start Date Expiration Date V isits Requested Visits Authorized [id number] Closed Auto-Generate d Referral 06/21/2023 07/20/2024 1 1 Additional Source Comments (unrecognized sect ion and content) No Status Records FoundNo Status Records FoundNo Status Records Found INFORMATION SOURCE (unrecogn ized section and content) DATE CREATED AUTHOR 11/01/2017 [facility] DATE CREATED AUTHOR AUTHOR'S ORGANIZ ATION 07/29/2024 [facility] DATE CREATED AUTHOR AUTHOR'S ORGANIZ ATION 12/24/2024 [facility] Goals (unrecognized section and content) Goals may be documented in a n alternate sectionGoals may be documented in an alternate section Care Teams (unrecognized sec tion and content) Team Status: Active Member Role Status Dates No Primary Care Physician Family Provider Active No Primary Care Physician Primary Care Provider Active Team Status: Inactive Member Role Status Dates No Primary Care Physician Primary Care Provider Active Dr. Santosh Duncan , DO Emergency Provider Active Source Comments (unrecognize d section and content) In the event this informatio n is protected by the Federal Confidentiality of Alcohol and Drug Abuse Patient Records regulations: The Federal rules restrict any use of the information to criminally investigate or prosecute any alcohol or drug abuse patient.[facility] the event this information is protected by the Federal Confidentiality of Alcohol and Drug Abuse Patient Records regulations: The Federal rules restrict any use of the information to criminally investigate or prosecute any alcohol or drug abuse patient.[facility] the event this information is protected by the Federal Confidentiality of Alcohol and Drug Abuse Patient Records regulations: The Federal rules restrict any use of the information to criminally investigate or prosecute any alcohol or drug abuse patient.[facility] the event this information is protected by the Federal Confidentiality of Alcohol and Drug Abuse Patient Records regulations: The Federal rules restrict any use of the information to criminally investigate or prosecute any alcohol or drug abuse patient.[facility] the event this information is protected by the Federal Confidentiality of Alcohol and Drug Abuse Patient Records regulations: The Federal rules restrict any use of the information to criminally investigate or prosecute any alcohol or drug abuse patient.[facility] the event this information is protected by the Federal Confidentiality of Alcohol and Drug Abuse Patient Records regulations: The Federal rules restrict any use of the information to criminally investigate or prosecute any alcohol or drug abuse patient.[facility] Reason for Visit (unrecogniz ed section and content) Reason Comments Back Pain Lower back across, p ain severe, x 3 days Reason Comments Pars defect lumbar spine Specialty Diagnoses / Procedures Referred By Mumtaz t Referred To Contact Orthopedics Diagnoses Pars defect of lumbar spine Procedures CONSULT TO ORTHOPAEDICS OFFICE/OUTPATIENT NEW HIGH MDM 60 MINUTES Myrna Tobias PA-C [address] [place] [address] Referral ID Status Reason Start Date Expiration Date V isits Requested Visits Authorized [id number] Closed PCP Requested Referral 06/21/2023 06/20/2024 1 1 Reason Comments Edema Right leg swelling, sore started last night Reason Comments Trauma Bee sting on neck x 1 day Inactive Administered Medications - up to 3 most recent administrations Administered Medications (un recognized section and content) Medication Order MAR Action Action Date Dose Rate Site keTORolac 30 mg injection (Toradol) 30 mg, INTRAMUSCULAR, ONCE, 1 dose, On Tue06/21/23 at 1200, Ketorolac (Toradol) is indicated for the short-term (up to 5 days) management of moderately severe acute pain. Continuation of ketorolac (Toradol) beyond 5 days increases the risk of developing serious adverse events. Please verify the duration of therapy for ketorolac (Toradol), If ordered PRN for pain, patient/guardian may elect to receive this medication for higher pain levels INSTEAD of the opioid, if preferred: Yes Given 06/21/2023 11:44 AM EST 30 mg Buttocks, Right FOR RECORDS PERTAINING TO PATIENTS WHO ARE OR HAVE BEEN ENROLLED IN A CHEMICAL DEPENDENCY/SUBSTANCEABUSE PROGRAM, SOME INFORMATION MAY BE OMITTED. This clinical summary was aggregated from multiple sources. Caution should be exercised in using it in the provision of clinical care. This summary normalizes information from multiple sources, and as a consequence, information in this document may materially change the coding, format and clinical context of patient data. In addition, data may be omitted in some cases. CLINICAL DECISIONS SHOULD BE BASED ON THE PRIMARY CLINICAL RECORDS. [employer] [facility]. provides no warranty or guarantee of the accuracy or completeness of information in this document.
[2025-01-31] MEDS: Orphenadrine 60 MG/2 ML Ampul IM (08:30)
== END 2025-01-31 09:02 | disposition home or self-care (01) ==
PROVIDERS: Emergency Provider Emergency Medicine; Visit Provider Emergency Medicine
DX: S39.012A Strain of muscle, fascia and tendon of lower back, initial encounter (principal); X58.XXXA Exposure to other specified factors, initial encounter; I10 Essential (primary) hypertension; F17.210 Nicotine dependence, cigarettes, uncomplicated; E66.9 Obesity, unspecified
CPT/HCPCS: 96372; 99282